=== PATIENT | male | born 1950 | race African-American/Black ===

== ENCOUNTER 2024-12-24 01:30 | Inpatient (IN) | payer OTHER ==
[2024-12-24] VITALS (14 sets, daily range): BP systolic 127–151; BP diastolic 79–97; PULSE 70–93; RESP 17–20; TEMP 97.4–97.9; O2SAT 94–99
[~2024-12-24] VITALS: Ht 170.2 cm; Wt 70.0 kg
[2024-12-24 02:10] LABS: Hematocrit 46.6 % (41.0-53.0); Hemoglobin 16.0 g/dL (13.5-17.5); Mean Corpuscular Hemoglobin 31.6 pg (28.0-32.0); Mean Corpuscular Volume 92.1 fL (80.0-100.0); Nucleated Red Blood Cells % 0.2 %
[2024-12-24 02:18] LABS: Alkaline Phosphatase 108 U/L (46-116); Anion Gap 12 (5-15); BUN/Creatinine Ratio 11.1 (10.0-20.0); Blood Urea Nitrogen 14 mg/dL (9-23); Calcium 10.3 mg/dL (8.7-10.4); Carbon Dioxide 22 mmol/L (20-31); Chloride 102 mmol/L (98-107); Potassium 3.7 mmol/L (3.5-5.1); Sodium 136 mmol/L (136-145)
[2024-12-24 02:19] LABS: Alanine Aminotransferase 42 U/L (7-40); Albumin 4.9 g/dL (3.2-4.8); Bilirubin, Total 1.7 mg/dL (0.2-1.0); Glucose 109 mg/dL (74-106); Total Protein 8.4 g/dL (5.7-8.2)
--- NOTE | 2024-12-24 02:28 | ED.PDOC ---
HPI Comments HPI:74-year-old male who came to ER for chest pains. Patient has a history of hypertension, dyslipidemia, chronic kidney failure. For the past 3 days, he has been complaining of right-sided chest pain. So complaining of lower back pain, radiating down his left buttocks, and down his posterior left leg. The patient states he usually takes Percocet 3 times a day for the pain. Patient denies cauda equina like symptoms. Patient follows with pain management for chronic back pain. Denies any recent fall or trauma. Initial Vitals BP:134/99 HR: 98 RR: 20 O2: 95% Temp: 97.5 F Past Medical History: Hypertension, dyslipidemia, chronic kidney failure, pinched nerve , chronic pain syndrome Past Surgical History: Hernia repair, rotator cuff surgery HPI: Poor Historian. REVIEW OF SYSTEMS: CONSTITUTIONAL: Denies acute: fever, diaphoresis, chills, generalized weakness. HEAD: Denies acute: headache, photophobia Eyes: Denies acute: Double vision, vision loss, eye pain, eye discharge. EARS: Denies acute: tinnitus, hearing loss, ear discharge, ear pain, THROAT: Denies acute: sore throat, swelling, difficulty swallowing , pain with swallowing, change in voice. NECK: Denies acute: neck pain, neck swelling, stiff neck. HEART: Denies acute : palpitations, LUNGS: Denies acute: SOB, wheezing, cough, hemoptysis ABDOMEN: Denies acute: abdominal pain, Nausea, Vomiting, diarrhea, melena , hematemesis, hematochezia SKIN: Denies acute: rash, redness, lesions, itchiness. EXTREMITIES: Denies acute: calf pain, numbness, tingling, weakness, Neuro: Denies acute: focal neurological deficit, motor or sensory focal neurological deficit, tremors, seizure like activity, confusion, dizziness, change in mental status, loss of bowel or bladder function, cauda equina like symptoms. : Denies acute: dysuria, hematuria, flank pain, increase in urinary frequency. PSYCH: Denies acute: hallucination, suicidal ideation, homicidal ideation. PHYSICAL EXAM: General: ---mild-----acute distress, awake and alert. Head: normocephalic, atraumatic. Neck: supple, trachea is midline, no swelling. Throat: Normal phonation. Eyes:, no erythema, no purulent discharge, no proptosis, no icterus. Heart: regular rate, regular rhythm, no significant murmur appreciated. Lungs: no apparent respiratory distress, Able to speak in full sentences. No wheezing, no rhonchi, no crackles. No stridors Clear to auscultation bilaterally. Abdomen: non tender to palpation, non distended, soft, no guarding, no rebound, + bowel sounds. Neuro: Awake, Alert, oriented to name, self, situation, follows commands GCS=15. Speech is normal. Skin: no petechia, no purpura, no cyanosis, non-pale, not jaundice. Lower extremities: --no - Pitting edema no deformity, no focal swelling, no calf TTP. Makes eye contact. moves all four extremities. Face: no apparent facial droop. ED COURSE: DISCLAIMER: This medical document was created using an electronic medical record system with voice recognition software and computerized dictation system. Although this document has been carefully reviewed, there might still be some phonetic and typographical errors. Occasional wrong-word or "sound-alike" substitutions may have occurred due to the inherent limitations of voice recognition software. These areas are purely typographical due to imperfections of the software programs and do not reflect any compromise in the patient's medical care. Please read the chart carefully and recognize, using context, where these substitutions have occurred. Chief Complaint: Chest Pain Time Seen by MD: 01:41 Primary Care Provider: DR VANEGAS Reviewed Notes: Allergies Allergies: Coded Allergies: NO KNOWN ALLERGIES (Unverified , 02/17/13) Information Source: Patient Mode of Arrival: Wheelchair Past Medical History PAST MEDICAL HISTORY: CKF, High Lipids, HTN Surgical History: Hernia Repair Surgical History (Other): Rotator cuff surgery Family History Family History: Reviewed,noncontributory to illness Social History Smoker: Non-Smoker Alcohol: Denies ETOH Use Drugs: Denies Drug Use Lives In: Home EKG EKG : Pulse Rate (adult): 87 [place]: LAD Cardiac Rhythm: NSR Was a procedure done? Was a procedure done?: No CP Differential Dx Differential Diagnosis: N/A Differential Diagnosis: Other (As far as low back pain: DDX included but not limited to Cauda Equina syndrome, lumbar radiculopathy, arthritis, disk herniation, sciatica, muscle strain, epidural abscess, transverse myelitis. Cord compression, spinal foraminal stenosis, spinal fractures, spondylosis, central canal stenosis, trauma, muscle sprain/strain, aneurysm/dissection, kidney stones, shingles, arthritis, Guillan Spencer, neoplasm., retroperitoneal hematoma) Differential Diagnosis: Angina, Chest Wall Pain, Costochondritis, Esophageal reflux/spasm, Gastritis, Myocardial Infarction, Other (Ddx include but not limitied to gastritis, musculoskeletal pain, radiculopathy, atypical chest pain, dissection, aneurysm, ACS, unstable angina, hiatal hernia, GERD, anxiety, costochondritis, PE, pneumothroax, neoplasm, cardiac ischemia, drug abuse, anemia.) X-Ray, Labs, Meds, VS Vital Signs Date Time Temp Pulse Resp B/P (MAP) Pulse Ox O2 Delivery O2 Flow Rate FiO2 12/24/24 03:38 77 18 127/79 (95) 95 12/24/24 03:15 75 18 72/46 (55) 12/24/24 02:42 89 18 95 Room Air* 0 21 12/24/24 02:42 97.8 89 18 130/83 (99) 95 97.8 12/24/24 02:41 130/83 12/24/24 02:28 87 12/24/24 01:38 87 12/24/24 01:31 97.5 98 20 134/99 95 97.5 Lab Test 12/24/24 02:25 12/24/24 01:40 Range/Units Troponin I High Sensitivity 3 L 3 L </=54 ng/L White Blood Count 7.3 4.4-10.8 10^3/uL Red Blood Count 5.06 4.5-5.90 10^6/uL Hemoglobin 16.0 13.5-17.5 g/dL Hematocrit 46.6 41.0-53.0 % Mean Corpuscular Volume 92.1 80.0-100.0 fL Mean Corpuscular Hemoglobin 31.6 28.0-32.0 pg Mean Corpuscular Hemoglobin Concent 34.3 32.0-36.0 g/dL Red Cell Distribution Width 14.6 H 11.8-14.3 % Platelet Count 335 140-450 10^3/uL Mean Platelet Volume 7.1 6.9-10.8 fL Neutrophils (%) (Auto) 53.6 37.0-80.0 % Lymphocytes (%) (Auto) 35.4 10.0-50.0 % Monocytes (%) (Auto) 9.0 0.0-12.0 % Eosinophils (%) (Auto) 1.8 0.0-7.0 % Basophils (%) (Auto) 0.2 0.0-2.0 % Neutrophils # (Auto) 3.9 1.6-8.6 10 ^3/uL Lymphocytes # (Auto) 2.6 0.4-5.4 10 ^3/uL Monocytes # (Auto) 0.6 0-1.3 10 ^3/uL Eosinophils # (Auto) 0.1 0-0.8 10 ^3/uL Basophils # (Auto) 0 0-0.2 10 ^3/uL Nucleated Red Blood Cells 0.2 % Sodium Level 136 136-145 mmol/L Potassium Level 3.7 3.5-5.1 mmol/L Chloride Level 102 98-107 mmol/L Carbon Dioxide Level 22 20-31 mmol/L Anion Gap 12 5-15 Blood Urea Nitrogen 14 9-23 mg/dL Creatinine 1.26 0.700-1.30 mg/dL Glomerular Filtration Rate Calc 60 >90 mL/min BUN/Creatinine Ratio 11.1 10.0-20.0 Serum Glucose 109 H 74-106 mg/dL Calcium Level 10.3 8.7-10.4 mg/dL Total Bilirubin 1.7 H 0.2-1.0 mg/dL Aspartate Amino Transferase (AST) 33 13-40 U/L Alanine Aminotransferase (ALT) 42 H 7-40 U/L Alkaline Phosphatase 108 46-116 U/L B-Type Natriuretic Peptide 10.13 0-100 pg/mL Total Protein 8.4 H 5.7-8.2 g/dL Albumin 4.9 H 3.2-4.8 g/dL Current Medications Medications (Trade) Dose Ordered Sig/Carolynn Route Start Time Stop Time Status Last Admin Aspirin 325 mg ONCE ONCE PO 12/24/24 02:15 12/24/24 02:16 DC 12/24/24 02:40 Nitroglycerin (Ntrostat Sublingual) 0.4 mg ONCE ONCE SL 12/24/24 02:15 12/24/24 02:16 DC 12/24/24 02:41 Dexamethasone Sodium Phosphate (Decadron Injection) 10 mg ONCE ONCE IV 12/24/24 02:45 12/24/24 02:51 DC 12/24/24 02:[address] [address] Ph: [phone] DIAGNOSTIC IMAGING Diagnostic Imaging Report : [id number] Signed PATIENT: AKBAR CARLSON ACCT: [id number] UNIT: [id number] : 1950 LOC: ER ROOM / BED: / AGE / SEX: 74 / M ADM STATUS: REG ER SERVICE 0 ORDERING PHYSICIAN: STACIE CAVANAUGH DO PROCEDURE(s): CXRP - CHEST PORTABLE REASON: cp ORDER NUMBER(s): [id number], ACCESSION NUMBER(s): [id number] CHEST RADIOGRAPH Indication: cp Technique: Single frontal view of the chest was obtained COMPARISON: None FINDINGS: Lines and Tubes: None Lungs: Clear Pleura: No effusion. No pneumothorax. Cardiomediastinal contours: Unremarkable Bones: Unremarkable IMPRESSION: 1. No acute disease. ATED BY: AB LEIGH MD DICTATED DATE/TIME: 12/24/24236 SIGNED BY: AB LEIGH MD SIGNED DATE/TIME: 12/24/24236 CC: Time of 1ST Reevaluation: 02:24 Reevaluation 1ST: Unchanged Patient Education/Counseling: Diagnosis, Treatment Family Education/Counseling: Diagnosis, Treatment Comments MDM: patient presented with the above HPI.--cardiac----workup was initiated. patient was found with the above mentioned diagnosis. the following medications were ordered: please refer to order lists of meds and tests obtained by myself Dr. Cavanaugh. Patient ED course and VS have been stabilized. Patient has been reassessed in the ED and remained in a stable condition. Pertinent incidental findings were discussed with the patient and/or family. Patient/family voices understanding and is agreeable with plan. Patient has been observed in the ED adequate length of time to insure improvement/stability. Escalation of care considered: Consideration of escalation to observation or admission Patient also has chronic pain syndrome on Percocet and follows with pain management. He has chronic rotator cuff pain and sciatica. Patient was given Decadron for his sciatica exacerbation. Patient had Percocet earlier at home. Patient was not given NSAIDs because he has CKD stage 3 Patient was ADMITTED to the medicine team for further evaluation and treatment of their presentation. All the reports of any imaging studies that were ordered by myself were reviewed by myself. SEPSIS Sepsis Screen Date sepsis recognized/suspect: Dec 24, 2024 Time Sepsis recognized/suspect: 013 Recent Procedure: No On Antibiotic Therapy: No Respiratory Rate >20: No Heart Rate >90: Yes Temp<36 C (96.8 F) or >38.3 C: No SBP <90 or MAP <65 mmHG: No New Acute Mental Status Change: No Is the patient on CPAP, BIPAP,: No Physician Orders Electrocardigram (12/24/24 01:53) Electrocardigram (12/24/24 02:53) Electrocardigram (12/24/24 04:53) [employer] (12/24/24 ) Chest Portable (12/24/24 02:01) Vital Signs Date Time Temp Pulse Resp B/P (MAP) Pulse Ox O2 Delivery O2 Flow Rate FiO2 12/24/24 03:38 77 18 127/79 (95) 95 12/24/24 03:15 75 18 72/46 (55) 12/24/24 02:42 89 18 95 Room Air* 0 21 12/24/24 02:42 97.8 89 18 130/83 (99) 95 97.8 12/24/24 02:41 130/83 12/24/24 02:28 87 12/24/24 01:38 87 12/24/24 01:31 97.5 98 20 134/99 95 97.5 Laboratory Tests Test 12/24/24 01:40 White Blood Count 7.3 10^3/uL (4.4-10.8) Medications Medications Dose Ordered Sig/Carolynn Route Start Time Stop Time Status Last Admin Dose Admin Aspirin 325 mg ONCE ONCE PO 12/24/24 02:15 12/24/24 02:16 DC 12/24/24 02:40 Dexamethasone Sodium Phosphate 10 mg ONCE ONCE IV 12/24/24 02:45 12/24/24 02:51 DC 10/26/25 02:45 Nitroglycerin 0.4 mg ONCE ONCE SL 12/24/24 02:15 12/24/24 02:16 DC 12/24/24 02:41 Departure 1 Departure Time of Disposition: 02:44 Impression: Primary Impression: Chest pain Additional Impressions: Chronic pain syndrome Sciatica Disposition: ADMITTED INPATIENT Admit to: Tele Condition: Guarded Discharged With: Self Critical Care Note Critical Care Time?: No Stability Stability form required: No Heart Score Heart Score: Heart Score Response (Comments) Value History Moderate Suspicious 1 EKG Normal 0 Age >65 2 Risk Factors >3 or Hx ASHD 2 Troponin Normal limit 0 Total 5 I personally scribed for STACIE CAVANAUGH DO ([email or web address]) on 12/24/24 at 02:28. Electronically submitted by Michael wAad ([facility]). I personally scribed for STACIE CAVANAUGH DO ([email or web address]) on 12/24/24 at 03:08. Electronically submitted by Michael Awad ([facility]). STACIE CAVANAUGH DO Dec 24, 2024 02:28
--- NOTE | 2024-12-24 02:39 | DVH ---
CHEST RADIOGRAPH Indication: cp Technique: Single frontal view of the chest was obtained COMPARISON: None FINDINGS: Lines and Tubes: None Lungs: Clear Pleura: No effusion. No pneumothorax. Cardiomediastinal contours: Unremarkable Bones: Unremarkable IMPRESSION: 1. No acute disease.
[2024-12-24] MEDS: NITROGLYCERIN 0.4 MG SL TAB SL ONE (02:41)
[2024-12-24] MEDS ORDERED: MORPHINE SULFATE INJ 2 MG/ml SYRG IV PRN (04:45)
[2024-12-24] MEDS ORDERED: ACETAMINOPHEN 325 MG TAB PO PRN (04:45)
[2024-12-24] MEDS ORDERED: NITROGLYCERIN 0.4 MG SL TAB SL PRN (04:45)
[2024-12-24] MEDS ORDERED: ALBUTEROL SULF 2.5 MG/0.5ML(0.5%) NEB SOLN NEB PRN (05:00)
[2024-12-24] MEDS ORDERED: IPRATROPIUM BROM 0.5 MG/2.5ML INH SOL NEB PRN (05:00)
[2024-12-24] MEDS: PANTOPRAZOLE 40 MG/10 ML VIAL INJ IV ONE (05:06)
--- NOTE | 2024-12-24 05:06 | DVHHPRES ---
History of Present Illness Resident Creating Document: GEORGI BARLOW RESIDENT History of Present Illness 74-year-old male patient with past medical history of hypertension, hyperlipidemia, CKD stage 2, sciatica, chronic pain syndrome, COPD presented with complaints of right-sided chest pain and lower back pain radiating to katarina ateral hips and bilateral legs right greater than left for last three days. Patient is on long-term pain management for sciatica likely due to disc compression but three days back he started having chest pain which is pressure- like on and off increased on deep inspiration, improved on lying flat, increased on walking, unrelieved by pain medication( Percocet ), not associated with any palpitation, dizziness, shortness of breath, cough. He mentioned that this is a new type of pain that he had for the 1st time. He also mentioned associated mild headache. Patient also complained of lower back pain radiating to bilateral hips and bila teral legs right greater than left for last three days. Patient mentioned that usually his pain is radiating to either hips but never both. The pain is unrelieved with medications, improved on lying flat and increased on walking and sitting. He also mentioned associated difficulty maintaining gait for last three days but denied any loss of bladder or bowel control and denied any motor deficit. He denied any recent trauma. Patient had a colonoscopy three months ago where he had polypectomy done. Patient has been getting intrathecal steroid injections for his pain and had MRI done which he mentioned revealed C7-C8 degenerative disc disease and nerve compression. Patient denied any episode of seizures,, nausea, vomiting, abdominal pain, cough, palpitations, shortness of breath. Past medical history Rotator cuff tendinitis COPD Hypertension Hyperlipidemia Chronic pain Sciatica Past surgical history Denied any recent surgery Family history Lung cancer, pancreatic cancer and splenic cancer in father at age of 80 Allergic history No known allergies Social history Patient smoked for 50 years half pack every day quit 3-4 months ago Patient actively drinks alcohol, last alcohol drink two months ago, drink 12 oz of vodka every other day Denied marijuana use drug intake Medication history Trelegy Albuterol Percocet Gabapentin Pepto-Bismol Tizanidine Amlodipine Atorvastatin Review of Systems Review of Systems As described in the HPI Allergies: Coded Allergies: NO KNOWN ALLERGIES (Unverified , 02/17/13) Medications Current Medications Medications Dose Ordered Sig/Carolynn Route Start Time Stop Time Status Last Admin Dose Admin Al Hydrox/Mg Hydrox/Simethicone 30 ml Q6HP PRN PO 12/24/24 04:45 Acetaminophen 650 mg Q6HP PRN PO 12/24/24 04:45 Morphine Sulfate 2 mg Q4HPRN PRN IV 12/24/24 04:45 Morphine Sulfate 2 mg Q30M PRN IV 12/24/24 04:45 Nitroglycerin 0.4 mg Q5MINP PRN SL 12/24/24 04:45 Albuterol 2.5 mg Q4HPRN PRN NEB 12/24/24 05:00 Ipratropium [place] 0.5 mg Q4HPRN PRN NEB 12/24/24 05:00 Pantoprazole Sodium 40 mg DAILY IV 12/24/24 10:00 Pregabalin 50 mg BID PO 12/24/24 22:00 Atorvastatin Calcium 40 mg HS PO 12/24/24 22:00 Exam Vital Signs Vital Signs Date Time Temp Pulse Resp B/P (MAP) Pulse Ox O2 Delivery O2 Flow Rate FiO2 12/24/24 04:44 70 12/24/24 03:38 18 127/79 (95) 95 12/24/24 02:42 Room Air* 0 21 12/24/24 02:42 97.8 97.8 Exam Examination General Appearance: Alert, Oriented X3, Cooperative, No acute distress HEENT: EOMI Respiratory: Clear to auscultation, Normal air movement Cardiovascular: Positive rib tenderness right-sided, Regular rate, Normal S1, Normal S2 Abdominal: Normal bowel sounds Extremities: No cyanosis, No edema, Normal pulses, No tenderness/swelling Skin: No rashes, No breakdown Neuro: Normal gait, Normal speech, Strength at 5/5 X4 ext, Normal tone, Sensation intact Psych/Mental Status: Mental status NL, Mood NL Straight leg raising test positive No motor deficit Labs/Xrays Labs Test 12/24/24 02:25 12/24/24 01:40 Range/Units Troponin I High Sensitivity 3 L </=54 ng/L White Blood Count 7.3 4.4-10.8 10^3/uL Red Blood Count 5.06 4.5-5.90 10^6/uL Hemoglobin 16.0 13.5-17.5 g/dL Hematocrit 46.6 41.0-53.0 % Mean Corpuscular Volume 92.1 80.0-100.0 fL Mean Corpuscular Hemoglobin 31.6 28.0-32.0 pg Mean Corpuscular Hemoglobin Concent 34.3 32.0-36.0 g/dL Red Cell Distribution Width 14.6 H 11.8-14.3 % Platelet Count 335 140-450 10^3/uL Mean Platelet Volume 7.1 6.9-10.8 fL Neutrophils (%) (Auto) 53.6 37.0-80.0 % Lymphocytes (%) (Auto) 35.4 10.0-50.0 % Monocytes (%) (Auto) 9.0 0.0-12.0 % Eosinophils (%) (Auto) 1.8 0.0-7.0 % Basophils (%) (Auto) 0.2 0.0-2.0 % Neutrophils # (Auto) 3.9 1.6-8.6 10 ^3/uL Lymphocytes # (Auto) 2.6 0.4-5.4 10 ^3/uL Monocytes # (Auto) 0.6 0-1.3 10 ^3/uL Eosinophils # (Auto) 0.1 0-0.8 10 ^3/uL Basophils # (Auto) 0 0-0.2 10 ^3/uL Nucleated Red Blood Cells 0.2 % Sodium Level 136 136-145 mmol/L Potassium Level 3.7 3.5-5.1 mmol/L Chloride Level 102 98-107 mmol/L Carbon Dioxide Level 22 20-31 mmol/L Anion Gap 12 5-15 Blood Urea Nitrogen 14 9-23 mg/dL Creatinine 1.26 0.700-1.30 mg/dL Glomerular Filtration Rate Calc 60 >90 mL/min BUN/Creatinine Ratio 11.1 10.0-20.0 Serum Glucose 109 H 74-106 mg/dL Calcium Level 10.3 8.7-10.4 mg/dL Total Bilirubin 1.7 H 0.2-1.0 mg/dL Aspartate Amino Transferase (AST) 33 13-40 U/L Alanine Aminotransferase (ALT) 42 H 7-40 U/L Alkaline Phosphatase 108 46-116 U/L B-Type Natriuretic Peptide 10.13 0-100 pg/mL Total Protein 8.4 H 5.7-8.2 g/dL Albumin 4.9 H 3.2-4.8 g/dL SEPSIS Sepsis Screen Date sepsis recognized/suspect: Dec 24, 2024 Time Sepsis recognized/suspect: 0131 Recent Procedure: No On Antibiotic Therapy: No Respiratory Rate >20: No Heart Rate >90: Yes Temp<36 C (96.8 F) or >38.3 C: No SBP <90 or MAP <65 mmHG: No New Acute Mental Status Change: No Is the patient on CPAP, BIPAP,: No Physician Orders Electrocardigram (12/24/24 01:53) Electrocardigram (12/24/24 02:53) Electrocardigram (12/24/24 04:53) Property Analyst (12/24/24 ) Chest Portable (12/24/24 02:01) Admit (12/24/24 04:41) Code Status (12/24/24 04:41) Vital Signs .PER UNIT PROTOCOL (12/24/24 04:41) Review Orders With Adm. (12/24/24 04:41) Alum & Mag Hydrox-Simethicone (Maalox Pl (12/24/24 04:45) Acetaminophen Tablet (Tylenol Tablet) (12/24/24 04:45) Notify Md Of Changes From Base (12/24/24 04:41) Advance Directive (12/24/24 04:41) Echo 2d Mode Cardiac Dop (12/24/24 04:41) Allergies (12/24/24 04:41) Morphine Sulfate Injection (12/24/24 04:45) Sequential Compression Device (12/24/24 ) Morphine Sulfate Injection (12/24/24 04:45) Oxygen By Nasal Cannula (12/24/24 04:41) Stat Ekg For Chest Pain (12/24/24 04:41) Notify Md Of Changes From Base (12/24/24 04:41) Ecdis N Navigation Operator For 24 Hours (12/24/24 04:41) Emergency Dysrhythmia Protocol (12/24/24 04:41) Rhythm Strips Once Every Shift (12/24/24 04:41) Nitroglycerin Sublingual (Ntrostat Subli (12/24/24 04:45) Electrocardigram (12/24/24 04:49) Thyroid Stimulating Hormone (12/24/24 04:49) Urinalysis (12/24/24 04:49) Albuterol Medneb (Ventolin Medneb) (12/24/24 05:00) Ipratropium Medneb (Atrovent Medneb) (12/24/24 05:00) Pantoprazole (Protonix) (12/24/24 10:00) Pregabalin Capsule (Lyrica Capsule) (12/24/24 22:00) Atorvastatin (Lipitor) (12/24/24 22:00) D-Dimer (12/24/24 05:04) Vitamin B12 (12/24/24 05:04) Folate (Folic Acid) (12/24/24 05:04) Hemoglobin A1c (12/25/24 04:00) Drug Screen (12/24/24 05:04) Vital Signs Date Time Temp Pulse Resp B/P (MAP) Pulse Ox O2 Delivery O2 Flow Rate FiO2 12/24/24 04:44 70 12/24/24 03:38 77 18 127/79 (95) 95 12/24/24 03:15 75 18 72/46 (55) 12/24/24 02:42 89 18 95 Room Air* 0 21 12/24/24 02:42 97.8 89 18 130/83 (99) 95 97.8 12/24/24 02:41 130/83 12/24/24 02:28 87 12/24/24 01:38 87 12/24/24 01:31 97.5 98 20 134/99 95 97.5 Laboratory Tests Test 12/24/24 01:40 White Blood Count 7.3 10^3/uL (4.4-10.8) Medications Medications Dose Ordered Sig/Carolynn Route Start Time Stop Time Status Last Admin Dose Admin Aspirin 325 mg ONCE ONCE PO 12/24/24 02:15 12/24/24 02:16 DC 12/24/24 02:40 325 MG Dexamethasone Sodium Phosphate 10 mg ONCE ONCE IV 12/24/24 02:45 12/24/24 02:51 DC 12/24/24 02:45 10 MG Nitroglycerin 0.4 mg ONCE ONCE SL 12/24/24 02:15 12/24/24 02:16 DC 12/24/24 02:41 0.4 MG Assessment/Plan Assessment/Plan Assessment/plan # Chest pain, rule out ACS, ? Unstable angina, ? Gastritis, ? Musculoskeletal -Unrelieved with nitroglycerin 2 times -Local tenderness right sided chest suggesting musculoskeletal cause -p.r.n. morphine -EKG : No significant ST changes Tropes within normal limit BNP Chest x-ray Echocardiogram , awaiting results Aspirin 325 mg given in the ER, aspirin 81 mg daily Atorvastatin 40 mg once and daily IV Protonix and Maalox Acetaminophen PRN # acute on chronic Lumbosacral radiculopathy -patient has mild ataxia as per history and bilateral hip pain for last three days unrelieved with the medication, concerning for possible spinal cord compression, but normal motor function and no bowel or bladder dysfunction, no definitive signs/symptoms of cauda equina syndrome as of now but could be early stage -we will do MRI lumbosacral spine for possible concern for spinal cord compression and history of colonic polyp, ?rule out any neoplastic cause -Dexamethasone 10 mg was given by the ER physician, we will continue d examethasone 4 mg IV q.6 hour -Pregabalin 50 mg b.i.d. # hypertension , currently normal blood pressure as per Age We will resume amlodipine # hyperlipidemia Resume statins # CKD stage 2 - monitor kidney function -lower nephrotoxic drugs # COPD, stable, uses Trelegy at home -albuterol and ipratropium p.r.n. # GERD Patient uses PPIs and Pepto-Bismol at home IV Protonix daily Maalox p.r.n. # history of colonic polyps Colonoscopy done three months ago status post polypectomy # ex-smoker -quit three years ago -smoked for 50 years half pack every day, average 25 pack year smoking history # alcohol use disorder Last drink two months ago Consume 12 ounces of vodka every other day #DVT prophylaxis -Low dose Lovenox 40mg SC daily Patient lives with , who was bedside, explained about the patient's cond ition Unrelieved with nitroglycerin 2 times Goals of care discussed with the patient for greater than 21 minutes, full code Plan discussed with: Patient, Other My Orders Orders - GEORGI BARLOW Procedure Category Date Status Time Admit ADMIT 12/24/24 Transmitted 04:41 Code Status CODE 12/24/24 Transmitted 04:41 Vital Signs [place] 12/24/24 Transmitted 04:41 Review Orders With [place] 12/24/24 Transmitted . 04:41 Alum & Mag PHA 12/24/24 In Process Hydrox-Simethicone 04:45 Acetaminophen Tablet PHA 12/24/24 In Process (Tylenol Tablet) 04:45 Notify Md Of Changes [facility] 12/24/24 In Process From Base 04:41 Advance Directive [place] 12/24/24 In Process 04:41 Echo 2d Mode Cardiac US 12/24/24 Logged DOP 04:41 Allergies [place] 12/24/24 In Process 04:41 Morphine Sulfate PHA 12/24/24 In Process Injection 04:45 Sequential [place] 12/24/24 In Process Compression Device Morphine Sulfate PHA 12/24/24 In Process Injection 04:45 Oxygen By Nasal RT 12/24/24 Transmitted Cannula 04:41 Stat Ekg For Chest [facility] 12/24/24 In Process Pain 04:41 Notify Md Of Changes [facility] 12/24/24 In Process From Base 04:41 Ecdis N Navigation Operator For [facility] 12/24/24 In Process 24 Hours 04:41 Emergency Dysrhythmia [facility] 12/24/24 In Process Protocol 04:41 Rhythm Strips Once [facility] 12/24/24 In Process Every Shift 04:41 Nitroglycerin PHA 12/24/24 In Process Sublingual (Ntrostat 04:45 Electrocardigram EKG 12/24/24 Logged 04:49 Thyroid Stimulating LAB 12/24/24 In Process Hormone 04:49 Urinalysis LAB 12/24/24 Logged 04:49 Albuterol Medneb PHA 12/24/24 In Process (Ventolin Medneb) 05:00 Ipratropium Medneb PHA 12/24/24 In Process (Atrovent Medneb) 05:00 Pantoprazole PHA 12/24/24 In Process (Protonix) 10:00 Pregabalin Capsule PHA 12/24/24 In Process (Lyrica Capsule) 22:00 Atorvastatin (Lipitor) PHA 12/24/24 In Process 22:00 D-Dimer LAB 12/24/24 Logged 05:04 Vitamin B12 LAB 12/24/24 Verified 05:04 Folate (Folic Acid) LAB 12/24/24 Verified 05:04 Hemoglobin A1c LAB 12/25/24 Verified 04:00 Drug Screen LAB 12/24/24 Verified 05:04 Date of Service: Dec 24, 2024 Billing Provider: NEIL JOSE MD Common Visit Codes: [id number] INP/OBS CARE (HIGH) Secondary Visit Codes: [id number] CARE PLAN 30 MINUTES GEORGI BARLOW RESIDENT Dec 24, 2024 05:06
[2024-12-24] MEDS: PREGABALIN 25 MG CAP PO ONE (05:15)
[2024-12-24] MEDS: ATORVASTATIN 20 MG TAB PO ONE (05:16)
[2024-12-24] MEDS ORDERED: OXYCODONE W/ ACETAMINOPHEN 5/325MG TABLET PO PRN (05:45)
[2024-12-24] MEDS: MORPHINE SULFATE INJ 2 MG/ml SYRG IV PRN (06:36)
--- NOTE | 2024-12-24 07:01 | ECG ---
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
--- NOTE | 2024-12-24 07:01 | ECG ---
[facility] Test Date: 2024-12-24 Test Time: 02:29:18 Pat Name: AKBAR CARLSON Department: Room: 0298T Gender: M Barrel Tester: : 1950 Requested By: STACIE CAVANAUGH Order Number: [id number] Reading MD: Quique Castro Measurements Intervals [place] Rate: 85 P: 62 [place]: 199 QRS: 26 QRSD: 91 T: 41 QT: 377 QTc: 449 Interpretive Statements Sinus rhythm Electronically Signed On 12-25-2024 15:14:40 PDT by Quique Castro Please click the below link to view image of tracing.
--- NOTE | 2024-12-24 07:01 | ECG ---
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
[2024-12-24] MEDS: PANTOPRAZOLE 40 MG/10 ML VIAL INJ IV SCH (10:28)
[2024-12-24] MEDS: ENOXAPARIN SOD 40 MG/0.4 ML SYRINGE SC SCH (10:30)
--- NOTE | 2024-12-24 11:30 | DVHPNRES ---
Progress Note Date Seen: Dec 24, 2024 Resident Creating Document: DELFINA WELDON RESIDENT Has the PT tested + for MRSA If YES, has PT been informed?: No Medical Necessity Reason Pt with a Central, PICC or Fol: No Subjective Review of Systems Olu Neves is a 74-year-old male, with past medical history of hypertension, hyperlipidemia, CKD stage 2, sciatica, chronic pain syndrome and COPD. The patient came to the ED with chief complain of 3 days of right-sided chest pain 10/10, pressure-like pain, intermittent, that started at rest, that irradiated to bilateral arms, that increases with deep and walking and improved at rest laying flat. On further questioning the patient reports he is being followed up by pain management due to chronic back pain, he is taking Percocet. During this visit the patient also complained of lower back pain radiating to bilateral hips and bilateral legs right greater than left for last three days. Patient mentioned that usually his pain is radiating to either hips but never both. The pain is unrelieved with medications (Percocet), improved on lying flat and increased on walking and sitting. Patient has been getting intrathecal steroid injections for his pain and had MRI done which he mentioned revealed C7- C8 degenerative disc disease and nerve compression. He also mentioned associated difficulty maintaining gait for last three days but denied any loss of bladder or bowel control and denied any motor deficit. Patient had a colonoscopy three months ago where he had polypectomy done. The day that the patient visit the ED, he took Percocet without improvement of his symptoms, this prompted his visit to the ED. He was admitted for further work up and management. The patient denies abdominal pain, nausea, diarrhea, fever, trauma, sick contacts, fever, chills or other symptoms.The patient was admitted for further assessment and management. Past medical history : Rotator cuff tendinitis, COPD, Hypertension, Hyperlipidemia, Chronic pain.Sciatica Past surgical history :; Denied any recent surgery Family history: Lung cancer, pancreatic cancer and splenic cancer in father at age of 80 Allergic history: No known allergies Social history: Patient smoked for 50 years half pack every day quit 3-4 months ago Patient actively drinks alcohol, last alcohol drink two months ago, drink 12 oz of vodka every other day Denied marijuana use drug intake Medication history: Trelegy, Albuterol, Percocet, Gabapentin, Pepto-Bismol, Tizanidine, Amlodipine. Atorvastatin Admission course: On 12/24/24, the patient was re-evaluated and examined at bedside, VS, labs and chart were reviewed. The patient report that the pain has improved with pain medication to /. No new complaints today. VS are stable. Labs unremarkable except by D-dimer. Due to elevated D-Dimer US Doppler bilateral legs was ordered. Also an MRI order has been placed to evaluate cause of lumbar pain. We will continue monitoring this patient's progress. ROS: Constitutional: denies: chills, diaphoresis, fatigue, fever, malaise, sweats, weakness, others EENTM: denies: blurred vision, double vision, ear bleeding, ear discharge, ear drainage, ear pain, ear ringing, eye pain, eye redness, hearing loss, mouth pain, mouth swelling, nasal discharge, nose bleeding, nose congestion, nose pain, photophobia, tearing, throat pain, throat swelling, voice changes, others Respiratory: denies: cough, hemoptysis, orthopnea, SOB at rest, shortness of breath, SOB with excertion, stridor, wheezing, others Cardiovascular: Right side chest pain. denies: chest pain, dizzy spells, diaphoresis, Dyspnea on exertion, edema, irregular heart beat, left arm pain, lightheadedness, palpitations, PND, syncope, others Gastrointestinal: denies: abdomen distended, abdominal pain, blood streaked bowels, constipated, diarrhea, dysphagia, difficulty swallowing, hematemesis, melena, nausea, poor appetite, poor fluid intake, rectal bleeding, rectal pain, vomiting, others Genitourinary: denies: abnormal vagina bleeding, burning, dyspareunia, dysuria, flank pain, frequency, hematuria, incontinence, pain, , vagina discharge, urgency, others Neurological: Bilateral lower leg numbness and tingling sensation down to the feet with difficult walking due to pain. denies: dizziness, fainting, headache, left sided numbness, left sided weakness, numbness. Musculoskeletal: Bilateral shoulder pain due to rotator cuff injuries per patient. Bilateral hip and leg pain down to the feet. difficult to walk and bare weight. Integumetry: reports: others (As stated in HPI) Allergic/Immunocompromised: denies: Difficulty Healing, Frequent Infections, Hives, Itching, others Hematologic/Lymphatic: denies: anemia, blood clots, easy bleeding, easy bruising, swollen glands, others Endocrine: denies: excessive hunger, excessive sweating, excessive thirst, excessive urination, flushing, intolerance to cold, intolerance to heat, unexplained weight gain, unexplained weight loss, others Psychiatric: denies: anxiety, bipolar disorder, depression, hopeless, panic disorder, schizophrenia, sleepless, suicidal, others Objective vital signs Vital Sign Date Time Temp Pulse Resp B/P (MAP) Pulse Ox O2 Delivery O2 Flow Rate FiO2 12/24/24 10:28 137/93 12/24/24 09:28 97.8 89 18 95 97.8 12/24/24 07:32 Room Air* 0 21 medications Current Medications Medications Dose Ordered Sig/Carolynn Route Start Time Stop Time Status Last Admin Dose Admin Al Hydrox/Mg Hydrox/Simethicone 30 ml Q6HP PRN PO 12/24/24 04:45 Acetaminophen 650 mg Q6HP PRN PO 12/24/24 04:45 Morphine Sulfate 2 mg Q4HPRN PRN IV 12/24/24 04:45 12/24/24 06:36 2 MG Morphine Sulfate 2 mg Q30M PRN IV 12/24/24 04:45 Nitroglycerin 0.4 mg Q5MINP PRN SL 12/24/24 04:45 Albuterol 2.5 mg Q4HPRN PRN NEB 12/24/24 05:00 Ipratropium [place] 0.5 mg Q4HPRN PRN NEB 12/24/24 05:00 Pantoprazole Sodium 40 mg DAILY IV 12/24/24 10:00 12/24/24 10:28 40 MG Pregabalin 50 mg BID PO 12/24/24 22:00 Atorvastatin Calcium 40 mg HS PO 12/24/24 22:00 Dexamethasone Sodium Phosphate 4 mg Q6HR IV 12/24/24 06:00 12/24/24 06:23 4 MG Oxycodone/ Acetaminophen 2 tab Q4HP PRN PO 12/24/24 05:45 Enoxaparin Sodium 40 mg DAILY SC 12/24/24 10:00 12/24/24 10:30 40 MG Amlodipine Besylate 5 mg DAILY PO 12/24/24 10:00 12/24/24 10:28 5 MG Examination General Appearance: Alert, Oriented X3, Cooperative, No acute distress HEENT: EOMI, no neck pain. ROM preserved on neck Respiratory: Clear to auscultation, Normal air movement Cardiovascular: tenderness on palpation on right chest, Positive rib tenderness right-sided, Heart: Regular rate, Normal S1, Normal S2 Abdominal: Normal bowel sounds Extremities: No cyanosis, No edema, Normal pulses, No tenderness/swelling. S traight leg raising test positive, worse in right. ROM limited by pain. Tenderness on palpation of vertebral processes on lumbar spine. No motor deficit. Gait not evaluated due to pain on standing. Skin: No rashes, No breakdown Neuro: Normal speech, Strength at 5/5 X4 ext, Normal tone, Sensation intact Psych/Mental Status: Mental status NL, Mood NL laboratory and microbiology Laboratory Tests 12/24/24 01:40 Test 12/24/24 01:40 Range/Units Serum Glucose 109 H 74-106 mg/dL Problem List/Assessment/Plan Problem List/Assessment/Plan # Chest pain, rule out ACS, #Possible Unstable angina #Rule out Musculoskeletal origin. -Unrelieved with nitroglycerin 2 times -Local tenderness right sided chest suggesting musculoskeletal cause -p.r.n. morphine -EKG : No significant ST changes Troponin: 3 and 3 BNP: 10.13 Chest x-ray: No acute disease. Echocardiogram: pending report. Aspirin 325 mg given in the ER, aspirin 81 mg daily Atorvastatin 40 mg once and daily Acetaminophen PRN #Acute on chronic Lumbosacral radiculopathy -patient has mild ataxia as per history and bilateral hip pain for last three days unrelieved with the medication, concerning for possible spinal cord compression, but normal motor function and no bowel or bladder dysfunction, no definitive signs/symptoms of cauda equina syndrome as of now but could be early stage -we will do MRI lumbosacral spine for possible concern for spinal cord compression and history of colonic polyp, ?rule out any neoplastic cause -Dexamethasone 10 mg was given by the ER physician, we will continue dexamethasone 4 mg IV q.6 hour -Pregabalin 50 mg b.i.d. - MRI Lumbar spine: pending report. #Hypertensive hear disease with diastolic/Systolic disfunction , currently normal blood pressure as per Age We will resume amlodipine # hyperlipidemia Resume statins # CKD stage 2 - monitor kidney function -lower nephrotoxic drugs # COPD, stable, uses Trelegy at home -albuterol and ipratropium p.r.n. # GERD Patient uses PPIs and Pepto-Bismol at home IV Protonix daily Maalox p.r.n. #History of colonic polyps Colonoscopy done three months ago status post polypectomy # Ex-smoker -quit three years ago -smoked for 50 years half pack every day, average 25 pack year smoking history #Alcohol use disorder Last drink two months ago Consume 12 ounces of vodka every other day DVT prophylaxis: Lovenox 40sc daily Diet: Cardiac diet Goals of care discussed with the patient for more than 35 minutes: Code Status: Full code PCP: Dr. Lacy. Cardiology Case discussed with Dr. Roman Plan discussed with: Patient My Orders My Orders Orders - DELFINA WELDON RESIDENT Procedure Category Date Status Time Bilat Lower Dvt US 12/24/24 Logged 09:57 Basic Metabolic Panel LAB 12/25/24 Verified 04:00 Complete Blood Count LAB 12/25/24 Verified 04:00 Date of Service: Dec 24, 2024 Billing Provider: RODGER SALCIDO MD Common Visit Codes: 35311-[id number] INP/OBS CARE(HIGH) Date of Service: Dec 24, 2024 Billing Provider: RODGER SALCIDO MD Common Visit Codes: [id number] INP/OBS CARE(HIGH) DELFINA WELDON RESIDENT Dec 24, 2024 11:30 RODGER SALCIDO MD Dec 24, 2024 23:27
--- NOTE | 2024-12-24 11:45 | DVH ---
Bilateral lower extremity venous duplex Clinical History: R/O DVT Comparison: None Technique: Duplex Doppler evaluation of the deep venous systems of both lower extremities from the common femora l veins to the popliteal veins including color Doppler and spectral/pulsed waveform analysis was perf ormed. Findings: RIGHT SIDE: The common femoral vein demonstrates appropriate compressibility and waveform variability. There is compressibility/patency of the great saphenous vein at the proximal thigh. The femoral vein demonstrates appropriate compressibility and waveform variability. The deep femoral vein demonstrates appropriate compressibility and waveform variability. The popliteal vein demonstrates appropriate compressibility and waveform variability. There is normal compressibility at the tibioperoneal trunk. LEFT SIDE: The common femoral vein demonstrates appropriate compressibility and waveform variability. There is compressibility/patency of the great saphenous vein at the proximal thigh. The femoral vein demonstrates appropriate compressibility and waveform variability. The deep femoral vein demonstrates appropriate compressibility and waveform variability. The popliteal vein demonstrates appropriate compressibility and waveform variability. There is normal compressibility at the tibioperoneal trunk. Impression: 1. No right or left femoropopliteal venous thrombosis.
--- NOTE | 2024-12-24 13:33 | DVHSR ---
APPROVED REPORT EXAM: Two-dimensional and M-mode echocardiogram with Doppler and color Doppler. Blood Pressure: 129/78 mmHg INDICATION Unable angina RISK FACTORS Height: 67, Weight: 155 DIMENSIONS LVDd3.9 (3.8-5.7cm)LA (2D)3.9 (1.9-4.0cm)Aortic Root4.1 (2.0-3.7cm) LVDs2.4 (2.5-4.0cm)LA (MM) (1.9-4.0cm)Aortic Cusp Exc1.9 (1.5-2.0cm) EF (%) 70.0 (55-70%)Rt. Atrium3.3 (1.9-4.0cm)Asc. Aorta cm Mitral Valve MitralMitral Stenosis E wave0.50m/sMV Mean GR.mmHg A wave0.83m/sMV Peak GR.mmHg E/A ratio0.62D MVAcm2 DECEL [id number] 1/2 Timems Aortic Valve Aortic ValveAortic Stenosis V10.88m/Veda Mean GR.4mmHg V21.34m/Veda Peak GR.7mmHg LVOT Diameter2.3 (1.8-2.4cm)Doppler AVA2.73cm2 AI P 1/2 [id number] Pulmonic Valve V20.88m/s Tricuspid Valve TR Velocity2.27m/s [id number] Conclusion lvef 60% mild lvh normal rv function normal atria no severe valve abnormaliteis noted pericardial fat pad vs small effusion, no HD compromise
--- NOTE | 2024-12-24 14:55 | DVH ---
EXAM: MRI LUMBAR SPINE WO CONTRAST INDICATION: rule out spinal cord compression TECHNIQUE: Multiplanar, multisequence MR images of the lumbar spine were obtained without the adminis tration of IV contrast. COMPARISON: None FINDINGS: [ANATOMY]: Five lumbar-type vertebral bodies are present. The most inferior well-formed disc space wi ll be referred to as L5-S1 for purposes of numbering in this report. [VERTEBRAL BODIES]: The vertebral bodies are normal in height, alignment, and marrow signal. modic ty pe 1 anterior superior endplate degenerative change with bone marrow edema of the anterior superior e ndplates of the L4 and L5. [SPINAL CANAL]: The conus medullaris is normal in signal and morphology, terminating at the L1-L2 lev el. Mild relative spinal canal narrowing posterior to L3, L4, L5. [FACETS]: Mild multilevel facet arthropathy with the associated edema extending posteriorly from the right L4-5 facet with slight pedicle edema on the right at L4. [OTHER]: None. LEVEL BY LEVEL DISCUSSION: [T12-L1]: Unremarkable. [L1-L2]: Mild bilateral foraminal narrowing secondary to facet arthropathy and trace inconspicuous di sc protrusions measuring 2 mm [L2-L3]: Trace bilateral inferior foraminal 2 mm disc protrusion bilateral facet arthropathy. Moderat e to severe bilateral foraminal narrowing [L3-L4]: Trace disc bulge with 2 mm posterior and inferior foraminal extension. Mild bilateral facet arthropathy. Moderate to severe bilateral foraminal narrowing [L4-L5]: Broad-based posterior disc protrusion measuring 3 mm with bilateral inferior foraminal exten [place]. Bilateral facet arthropathy. Severe bilateral foraminal narrowing. [L5-S1]: 3-4 mm posterior disc protrusion predominantly centrally with bilateral inferior foraminal e xtension severe bilateral foraminal narrowing. IMPRESSION: 1. Multilevel spondylosis and facet arthropathy with associated foraminal narrowing as detailed above . 2. No high-grade spinal canal stenosis.
[2024-12-24] MEDS: ATORVASTATIN 20 MG TAB PO SCH (21:41)
[2024-12-24] MEDS: PREGABALIN 25 MG CAP PO SCH (21:41)
[2024-12-25] VITALS (7 sets, daily range): BP systolic 131–154; BP diastolic 86–106; PULSE 82–97; RESP 17–18; TEMP 97.6–98.2; O2SAT 96–98
[2024-12-25] MEDS: MAALOX PLUS or MAALOX 30 ML PO PRN (05:26)
[2024-12-25 06:34] LABS: Hematocrit 45.4 % (41.0-53.0); Hemoglobin 15.4 g/dL (13.5-17.5); Mean Corpuscular Hemoglobin 31.4 pg (28.0-32.0); Mean Corpuscular Volume 92.5 fL (80.0-100.0); Nucleated Red Blood Cells % 0.1 %
[2024-12-25 06:55] LABS: Chloride 103 mmol/L (98-107); Potassium 4.3 mmol/L (3.5-5.1); Sodium 138 mmol/L (136-145)
[2024-12-25 06:56] LABS: Anion Gap 13 (5-15); Carbon Dioxide 22 mmol/L (20-31)
[2024-12-25 07:01] LABS: BUN/Creatinine Ratio 14.7 (10.0-20.0); Blood Urea Nitrogen 19 mg/dL (9-23)
[2024-12-25 07:25] LABS: Calcium 10.5 mg/dL (8.7-10.4); Glucose 143 mg/dL (74-106)
--- NOTE | 2024-12-25 13:10 | DVHDSRES ---
Discharge Summary Date of Admission Resident Creating Document: DELFINA WELDON RESIDENT Dec 24, 2024 at 04:41 Date of Discharge: Dec 25, 2024 Admitting Diagnosis Chest pain: Possible unstable angina, rule out ACS, GERD, musculoskeletical pain Acute on chronic Lumbrosacral radiculopathy. Hyperlipidemia COPD Labs/Diagnostic Data: Laboratory Results Test 12/25/24 05:41 12/24/24 02:25 12/24/24 01:40 White Blood Count 15.2 10^3/uL (4.4-10.8) Red Blood Count 4.91 10^6/uL (4.5-5.90) Hemoglobin 15.4 g/dL (13.5-17.5) Hematocrit 45.4 % (41.0-53.0) Mean Corpuscular Volume 92.5 fL (80.0-100.0) Mean Corpuscular Hemoglobin 31.4 pg (28.0-32.0) Mean Corpuscular Hemoglobin Concent 33.9 g/dL (32.0-36.0) Red Cell Distribution Width 14.4 % (11.8-14.3) Platelet Count 378 10^3/uL (140-450) Mean Platelet Volume 7.5 fL (6.9-10.8) Neutrophils (%) (Auto) 92.1 % (37.0-80.0) Lymphocytes (%) (Auto) 6.7 % (10.0-50.0) Monocytes (%) (Auto) 1.1 % (0.0-12.0) Eosinophils (%) (Auto) 0.0 % (0.0-7.0) Basophils (%) (Auto) 0.1 % (0.0-2.0) Neutrophils # (Auto) 14.0 10 ^3/uL (1.6-8.6) Lymphocytes # (Auto) 1.0 10 ^3/uL (0.4-5.4) Monocytes # (Auto) 0.2 10 ^3/uL (0-1.3) Eosinophils # (Auto) 0 10 ^3/uL (0-0.8) Basophils # (Auto) 0 10 ^3/uL (0-0.2) Nucleated Red Blood Cells 0.1 % Sodium Level 138 mmol/L (136-145) Potassium Level 4.3 mmol/L (3.5-5.1) Chloride Level 103 mmol/L (98-107) Carbon Dioxide Level 22 mmol/L (20-31) Anion Gap 13 (5-15) Blood Urea Nitrogen 19 mg/dL (9-23) Creatinine 1.29 mg/dL (0.700-1.30) Glomerular Filtration Rate Calc 59 mL/min (>90) BUN/Creatinine Ratio 14.7 (10.0-20.0) Serum Glucose 143 mg/dL (74-106) Hemoglobin A1c 4.6 % A1C (<5.7) Calcium Level 10.5 mg/dL (8.7-10.4) Troponin I High Sensitivity 3 ng/L (</=54) Thyroid Stimulating Hormone (TSH) 3.68 uIU/mL (0.55-4.78) D-Dimer, Quantitative 1.11 mg/L FEU (0.0-0.49) Total Bilirubin 1.7 mg/dL (0.2-1.0) Aspartate Amino Transferase (AST) 33 U/L (13-40) Alanine Aminotransferase (ALT) 42 U/L (7-40) Alkaline Phosphatase 108 U/L (46-116) B-Type Natriuretic Peptide 10.13 pg/mL (0-100) Total Protein 8.4 g/dL (5.7-8.2) Albumin 4.9 g/dL (3.2-4.8) Vitamin B12 Level 818 pg/mL (211-911) Folic Acid 10.83 ng/mL (>5.38) Other Laboratory Tests 12/25/24 05:41 Brief Hx & Hospital Course: Olu Neves is a 74-year-old male, with past medical history of hypertension, hyperlipidemia, CKD stage 2, sciatica, chronic pain syndrome and COPD. The patient came to the ED with chief complain of 3 days of right-sided chest pain 10/10, pressure-like pain, intermittent, that started at rest, that irradiated to bilateral arms, that increases with deep and walking and improved at rest laying flat. On further questioning the patient reports he is being followed up by pain management due to chronic back pain, he is taking Percocet. During this visit the patient also complained of lower back pain radiating to bilateral hips and bilateral legs right greater than left for last three days. Patient mentioned that usually his pain is radiating to either hips but never both. The pain is unrelieved with medications (Percocet), improved on lying flat and increased on walking and sitting. Patient has been getting intrathecal steroid injections for his pain and had MRI done which he mentioned revealed C7- C8 degenerative disc disease and nerve compression. He also mentioned associated difficulty maintaining gait for last three days but denied any loss of bladder or bowel control and denied any motor deficit. Patient had a colonoscopy three months ago where he had polypectomy done. The day that the patient visit the ED, he took Percocet without improvement of his symptoms, this prompted his visit to the ED. He was admitted for further work up and management. The patient denies abdominal pain, nausea, diarrhea, fever, trauma, sick contacts, fever, chills or other symptoms.The patient was admitted for further assessment and management. Past medical history : Rotator cuff tendinitis, COPD, Hypertension, Hyperlipidemia, Chronic pain.Sciatica Past surgical history :; Denied any recent surgery Family history: Lung cancer, pancreatic cancer and splenic cancer in father at age of 80 Allergic history: No known allergies Social history: Patient smoked for 50 years half pack every day quit 3-4 months ago Patient actively drinks alcohol, last alcohol drink two months ago, drink 12 oz of vodka every other day Denied marijuana use drug intake Medication history: Trelegy, Albuterol, Percocet, Gabapentin, Pepto-Bismol, Tizanidine, Amlodipine. Atorvastatin Admission course: On 12/24/24, the patient was re-evaluated and examined at bedside, VS, labs and chart were reviewed. The patient report that the pain has improved with pain medication to 2/10. No new complaints today. VS are stable. Labs unremarkable except by D-dimer. Due to elevated D-Dimer US Doppler bilateral legs was ordered. Also an MRI order has been placed to evaluate cause of lumbar pain. We will continue monitoring this patient's progress. On 12/25/24, the patient was re-evaluated and examined at bedside. His VS, labs and chart was reviewed. The patient reports feeling well today, back pain is 1/10. No chest pain. ECHO showed: EF60%, normal RV funtion. MRI reported: Multilevel spondylosis and facet arthropathy with associated foraminal narrowing and multilevel disc protusions. Bilateral lower extremities US doppler reported No right or left femoropopliteal venous thrombosis. Due to clinical improvement, the patient will be discharge. The patient will follow up with PCP, pain management and spine surgeon in 1 week. ROS: Constitutional: denies: chills, diaphoresis, fatigue, fever, malaise, sweats, weakness, others EENTM: denies: blurred vision, double vision, ear bleeding, ear discharge, ear drainage, ear pain, ear ringing, eye pain, eye redness, hearing loss, mouth pain, mouth swelling, nasal discharge, nose bleeding, nose congestion, nose pain, photophobia, tearing, throat pain, throat swelling, voice changes, others Respiratory: denies: cough, hemoptysis, orthopnea, SOB at rest, shortness of breath, SOB with excertion, stridor, wheezing, others Cardiovascular: Right side chest pain. denies: chest pain, dizzy spells, diaphoresis, Dyspnea on exertion, edema, irregular heart beat, left arm pain, lightheadedness, palpitations, PND, syncope, others Gastrointestinal: denies: abdomen distended, abdominal pain, blood streaked bowels, constipated, diarrhea, dysphagia, difficulty swallowing, hematemesis, melena, nausea, poor appetite, poor fluid intake, rectal bleeding, rectal pain, vomiting, others Genitourinary: denies: abnormal vagina bleeding, burning, dyspareunia, dysuria, flank pain, frequency, hematuria, incontinence, pain, , vagina discharge, urgency, others Neurological: Bilateral lower leg numbness and tingling sensation down to the feet with difficult walking due to pain. denies: dizziness, fainting, headache, left sided numbness, left sided weakness, numbness. Musculoskeletal: Bilateral shoulder pain due to rotator cuff injuries per patient. Bilateral hip and leg pain down to the feet. difficult to walk and bare weight. Integumetry: reports: others (As stated in HPI) Allergic/Immunocompromised: denies: Difficulty Healing, Frequent Infections, Hives, Itching, others Hematologic/Lymphatic: denies: anemia, blood clots, easy bleeding, easy bruising, swollen glands, others Endocrine: denies: excessive hunger, excessive sweating, excessive thirst, excessive urination, flushing, intolerance to cold, intolerance to heat, unexplained weight gain, unexplained weight loss, others Psychiatric: denies: anxiety, bipolar disorder, depression, hopeless, panic disorder, schizophrenia, sleepless, suicidal, others Physical Exam: General Appearance: Alert, Oriented X3, Cooperative, No acute distress HEENT: EOMI, no neck pain. ROM preserved on neck Respiratory: Clear to auscultation, Normal air movement Cardiovascular: No chest pain or muscular tenderness. Heart: Regular rate, Normal S1, Normal S2 Abdominal: Normal bowel sounds Extremities: No cyanosis, No edema, Normal pulses, No tenderness/swelling. S traight leg raising test positive, worse in right. ROM limited by pain. Tenderness on palpation of vertebral processes on lumbar spine. No motor deficit. Gait not evaluated due to pain on standing. Skin: No rashes, No breakdown Neuro: Normal speech, Strength at 5/5 X4 ext, Normal tone, Sensation intact Psych/Mental Status: Mental status NL, Mood NL Operations or Procedures PROCEDURE(s): ECID - ECHO 2D MODE CARDIAC DOP REASON: unstable angina ORDER NUMBER(s): [id number], ACCESSION NUMBER(s): [id number] APPROVED REPORT EXAM: Two-dimensional and M-mode echocardiogram with Doppler and color Doppler. Blood Pressure: 129/78 mmHg INDICATION Unable angina RISK FACTORS Height: 67, Weight: 155 DIMENSIONS LVDd 3.9 (3.8-5.7cm) LA (2D) 3.9 (1.9-4.0cm) Aortic Root 4.1 (2.0- 3.7cm) LVDs 2.4 (2.5-4.0cm) LA (MM) (1.9-4.0cm) Aortic Cusp Exc 1.9 (1.5- 2.0cm) EF (%) 70.0 (55-70%) Rt. Atrium 3.3 (1.9-4.0cm) Asc. Aorta cm Mitral Valve Mitral Mitral Stenosis E wave 0.50m/s MV Mean GR. mmHg A wave 0.83m/s MV Peak GR. mmHg E/A ratio 0.6 2D MVA cm2 DECEL Time 200ms PRESS 1/2 Time ms Aortic Valve Aortic Valve Aortic Stenosis V1 0.88m/s AO Mean GR. 4mmHg V2 1.34m/s AO Peak GR. 7mmHg LVOT Diameter 2.3 (1.8-2.4cm) Doppler AMANDA 2.73cm2 AI P 1/2 Time 529.01ms Pulmonic Valve V2 0.88m/s Tricuspid Valve TR Velocity 2.27m/s RVSP 24mmHg Conclusion lvef 60% mild lvh normal rv function normal atria no severe valve abnormaliteis noted pericardial fat pad vs small effusion, no HD compromise PROCEDURE(s): BLDVT - BiLat Lower DVT REASON: R/O DVT ORDER NUMBER(s): [id number], ACCESSION NUMBER(s): [id number] Bilateral lower extremity venous duplex Clinical History: R/O DVT Comparison: None Technique: Duplex Doppler evaluation of the deep venous systems of both lower extremities from the common femoral veins to the popliteal veins including color Doppler and spectral/pulsed waveform analysis was performed. Findings: RIGHT SIDE: The common femoral vein demonstrates appropriate compressibility and waveform variability. There is compressibility/patency of the great saphenous vein at the proximal thigh. The femoral vein demonstrates appropriate compressibility and waveform variability. The deep femoral vein demonstrates appropriate compressibility and waveform variability. The popliteal vein demonstrates appropriate compressibility and waveform variability. There is normal compressibility at the tibioperoneal trunk. LEFT SIDE: The common femoral vein demonstrates appropriate compressibility and waveform variability. There is compressibility/patency of the great saphenous vein at the proximal thigh. The femoral vein demonstrates appropriate compressibility and waveform variability. The deep femoral vein demonstrates appropriate compressibility and waveform variability. The popliteal vein demonstrates appropriate compressibility and waveform variability. There is normal compressibility at the tibioperoneal trunk. Impression: 1. No right or left femoropopliteal venous thrombosis. EDURE(s): MSL - LUMBAR SPINE WO CONTRAST REASON: rule out spinal cord compression ORDER NUMBER(s): [id number], ACCESSION NUMBER(s): [id number] EXAM: MRI LUMBAR SPINE WO CONTRAST INDICATION: rule out spinal cord compression TECHNIQUE: Multiplanar, multisequence MR images of the lumbar spine were obtained without the administration of IV contrast. COMPARISON: None FINDINGS: [ANATOMY]: Five lumbar-type vertebral bodies are present. The most inferior well-formed disc space will be referred to as L5-S1 for purposes of numbering in this report. [VERTEBRAL BODIES]: The vertebral bodies are normal in height, alignment, and marrow signal. modic type 1 anterior superior endplate degenerative change with bone marrow edema of the anterior superior endplates of the L4 and L5. [SPINAL CANAL]: The conus medullaris is normal in signal and morphology, terminating at the L1-L2 level. Mild relative spinal canal narrowing posterior to L3, L4, L5. [FACETS]: Mild multilevel facet arthropathy with the associated edema extending posteriorly from the right L4-5 facet with slight pedicle edema on the right at L4. [OTHER]: None. LEVEL BY LEVEL DISCUSSION: [T12-L1]: Unremarkable. [L1-L2]: Mild bilateral foraminal narrowing secondary to facet arthropathy and trace inconspicuous disc protrusions measuring 2 mm [L2-L3]: Trace bilateral inferior foraminal 2 mm disc protrusion bilateral facet arthropathy. Moderate to severe bilateral foraminal narrowing [L3-L4]: Trace disc bulge with 2 mm posterior and inferior foraminal extension. Mild bilateral facet arthropathy. Moderate to severe bilateral foraminal narrowing [L4-L5]: Broad-based posterior disc protrusion measuring 3 mm with bilateral inferior foraminal extension. Bilateral facet arthropathy. Severe bilateral foraminal narrowing. [L5-S1]: 3-4 mm posterior disc protrusion predominantly centrally with bilateral inferior foraminal extension severe bilateral foraminal narrowing. IMPRESSION: 1. Multilevel spondylosis and facet arthropathy with associated foraminal narrowing as detailed above. 2. No high-grade spinal canal stenosis. EDURE(s): CXRP - CHEST PORTABLE REASON: cp ORDER NUMBER(s): [id number], ACCESSION NUMBER(s): [id number] CHEST RADIOGRAPH Indication: cp Technique: Single frontal view of the chest was obtained COMPARISON: None FINDINGS: Lines and Tubes: None Lungs: Clear Pleura: No effusion. No pneumothorax. Cardiomediastinal contours: Unremarkable Bones: Unremarkable IMPRESSION: 1. No acute disease. Condition at Discharge: Stable Final Diagnosis/Problems List Lumbar Polyradiculopathy Discharge Disposition: Home Discharge Instruct/Medications Diet: Cardiac 2g Na,low cholest, Renal Activity: No Restrictions, As Tolerated Follow Up/Referral: F/U with PCP in one week F/U with pain management in 1 week F/U with spine surgeon in 1 week. No Active Prescriptions or Reported Meds Discharge Statement: "Patient was advised to return to the ER or call 911 if any headaches, dizziness, shortness of breath, chest pain, abdominal pain, bleeding, fevers, or worsening of medical condition. Patient was counseled about treatment plan, medications, possible side effects, patientverbalized understanding. All questions were answered to the best of my ability. This discharge took greater then 30 minutes in planning, reviewing documentation, counseling the patient, and discussing with other team members." ASSESSMENT ASSESSMENT Assessment Assessments/Plan Discharge home Continue cardiac/renal diet # Chest pain, ACS ruled out #Possible Unstable angina. #Possible Musculoskeletal origin. #Acute on chronic Lumbosacral radiculopathy #Hypertensive hear disease with diastolic/Systolic disfunction , currently normal blood pressure as per Age # hyperlipidemia # CKD stage 2 # COPD, stable, uses Trelegy at home # GERD #History of colonic polyps # Ex-smoker DVT prophylaxis: Lovenox 40sc daily Diet: Cardiac diet Goals of care discussed with the patient for more than 35 minutes Code Status: Full code PCP: Dr. Lacy. Case discussed with Dr. Roman Date of Service: Dec 25, 2024 Billing Provider: RODGER SALCIDO MD Common Visit Codes: 88884-CDG/OBS DISCH DAY >30min DELFINA WELDON RESIDENT Dec 25, 2024 13:10 RODGER SALCIDO MD Dec 25, 2024 21:40
== END 2024-12-25 14:05 | disposition home or self-care (01) | DRG 552 ==
LOC: ER 01:30 → OVERFLOW 04:41 → TELE-WESTW 09:20
PROVIDERS: ADMIT Internal Medicine; ATTEND Internal Medicine
DX: M54.17 Radiculopathy, lumbosacral region (principal); I20.0 Unstable angina; K21.9 Gastro-esophageal reflux disease without esophagitis; J44.9 Chronic obstructive pulmonary disease, unspecified; N18.2 Chronic kidney disease, stage 2 (mild); E78.5 Hyperlipidemia, unspecified; G89.4 Chronic pain syndrome; I12.9 Hypertensive chronic kidney disease with stage 1 through stage 4 chronic kidney disease, or unspecified chronic kidney disease; N18.9 Chronic kidney disease, unspecified; Z79.899 Other long term (current) drug therapy
CPT/HCPCS: 36415; 71045; 72148; 80048; 80053; 82607; 82746; 83036; 83880; 84443; 84484; 85025; 85379; 93005; 93306; 93970; 96374; G0378; J1100; J2470

== ENCOUNTER 2025-01-16 16:24 | Inpatient (IN) | payer OTHER ==
[~2025-01-16] VITALS: Ht 170.2 cm; Wt 73.2 kg
--- NOTE | 2025-01-16 16:49 | ED.PDOC ---
History of Present Illness HPI Comments 74 year old male with PMHx a-fib, CKF, DM, HLD, HTN, presents to the ED via EMS with a chief complaint of generalized weakness onset today. Per EMS, called 911 due to patient experiencing generalized weakness, was not able to get out of bed, was weak, fatigue, seemed confused. Upon EMS arrival, patient was A&O x2, upon ED arrival patient was A&O x4, very fatigued. Per EMS, also states patient took Xanax last night. Denies fever, chills, headache, dizziness, nausea, vomiting, head injury, chest pain. No other symptoms or modifying factors present at this time. Chief Complaint: General Weakness Time Seen by MD: 16:35 Primary Care Provider: DR VANEGAS Reviewed Notes: Medications, Allergies Allergies: Coded Allergies: NO KNOWN ALLERGIES (Unverified , 02/17/13) Home Meds No Active Prescriptions or Reported Meds Information Source: Emergency Med Personnel Mode of Arrival: EMS Severity: Moderate Timing: Hours Duration: Since onset Prehospital treatment: None Past Medical History PAST MEDICAL HISTORY: AFIB, CKF, DM, High Lipids, HTN Surgical History: Hernia Repair Family History Family History: Reviewed,noncontributory to illness Social History Smoker: Non-Smoker Alcohol: Denies ETOH Use Drugs: Denies Drug Use Lives In: Home Constitutional: reports: fatigue, weakness; denies: chills, diaphoresis, fever, malaise, sweats, others EENTM: denies: blurred vision, double vision, ear bleeding, ear discharge, ear drainage, ear pain, ear ringing, eye pain, eye redness, hearing loss, mouth pain, mouth swelling, nasal discharge, nose bleeding, nose congestion, nose pain, photophobia, tearing, throat pain, throat swelling, voice changes, others Respiratory: denies: cough, hemoptysis, orthopnea, SOB at rest, shortness of breath, SOB with excertion, stridor, wheezing, others Cardiovascular: denies: chest pain, dizzy spells, diaphoresis, Dyspnea on exertion, edema, irregular heart beat, left arm pain, lightheadedness, palpitations, PND, syncope, others Gastrointestinal: denies: abdomen distended, abdominal pain, blood streaked bowels, constipated, diarrhea, dysphagia, difficulty swallowing, hematemesis, melena, nausea, poor appetite, poor fluid intake, rectal bleeding, rectal pain, vomiting, others Genitourinary: denies: burning, dysuria, flank pain, frequency, hematuria, incontinence, penile discharge, penile sore, pain, testicle pain, testicle swelling, urgency, others Neurological: reports: weakness; denies: dizziness, fainting, headache, left sided numbness, left sided weakness, numbness, paresthesia, pre-existing deficit, right sided numbness, right sided weakness, seizure, speech problems, tingling, tremors, others Musculoskeletal: denies: back pain, gout, joint pain, joint swelling, muscle pain, muscle stiffness, neck pain, others Integumetry: denies: bruises, change in color, change in hair/nails, dryness, laceration, lesions, lumps, rash, wounds, others Allergic/Immunocompromised: denies: Difficulty Healing, Frequent Infections, Hives, Itching, others Hematologic/Lymphatic: denies: anemia, blood clots, easy bleeding, easy bruising, swollen glands, others Endocrine: denies: excessive hunger, excessive sweating, excessive thirst, excessive urination, flushing, intolerance to cold, intolerance to heat, unexplained weight gain, unexplained weight loss, others Psychiatric: reports: others (ALOC); denies: anxiety, bipolar disorder, depression, hopeless, panic disorder, schizophrenia, sleepless, suicidal All Other Systems: Reviewed and Negative Physical Exam General Appearance: Normal, Other (lethargic) HEENT: Normal ENT Inspection, Pharynx Normal, TMs Normal Neck: Full Range of Motion, Non-Tender, Normal, Normal Inspection Respiratory: Chest Non-Tender, Lungs Clear, No Accessory Muscle Use, No Respiratory Distress, Normal Breath Sounds Cardiovascular: No Edema, No JVD, No Murmur, No Gallop, Normal Peripheral Pulses, Regular Rate/Rhythm Breast Exam: Deferred Gastrointestinal: No Organomegaly, Non Tender, No Pulsatile Mass, Normal Bowel Sounds, Soft Genitalia: Deferred Pelvic: Deferred Rectal: Deferred Extremities: Other (unable to obtain) Musculoskeletal : Apperance: Normal Neurologic: Other (unable to obtain) Cerebellar Function: Normal Reflexes: Normal Skin: Dry, Normal Color, Warm Lymphatic: No Adenopathy Was a procedure done? Was a procedure done?: No Differential Dx Considerations may include: Sepsis, stroke, CVA, drug overdose X-Ray, Labs, Meds, VS Vital Signs Date Time Temp Pulse Resp B/P (MAP) Pulse Ox O2 Delivery O2 Flow Rate FiO2 01/16/25 18:00 82 16 95 Room Air* 0 21 01/16/25 18:00 98.1 82 16 129/73 (91) 95 98.1 01/16/25 16:43 86 01/16/25 16:37 98.0 88 24 142/98 95 98.0 Lab Test 01/16/25 18:36 01/16/25 18:22 01/16/25 17:01 Range/Units Troponin I High Sensitivity < 3 L < 3 L </=54 ng/L Urine Color Colorless Yellow Urine Clarity Clear Clear Urine pH 7.5 5.0-9.0 Urine Specific [place] 1.005 1.001-1.035 Urine Protein Negative Negative Urine Ketones Negative Negative Urine Blood Negative Negative /uL Urine Nitrite Negative Negative Urine Bilirubin Negative Negative Urine Urobilinogen Normal Negative mg/dL Urine Leukocyte Esterase Negative Negative /uL Urine RBC 1 0 - 3 /hpf Urine Microscopic WBC < 1 0-3 /HPF Urine Squamous Epithelial Cells None seen <5 /hpf Urine Bacteria None seen None Seen /hpf Urine Glucose Normal Normal mg/dL Urine Opiates Screen Pos NEGATIVE Urine Fentanyl Screen Neg NEGATIVE Urine Barbiturates Screen Neg NEGATIVE Urine Phencyclidine Screen Neg NEGATIVE Urine Amphetamines Screen Neg NEGATIVE Urine Benzodiazepines Screen Pos NEGATIVE Urine Cocaine Screen Neg NEGATIVE Urine Cannabinoids Screen Pos NEGATIVE White Blood Count 6.7 4.4-10.8 10^3/uL Red Blood Count 4.48 L 4.5-5.90 10^6/uL Hemoglobin 14.3 13.5-17.5 g/dL Hematocrit 42.2 41.0-53.0 % Mean Corpuscular Volume 94.2 80.0-100.0 fL Mean Corpuscular Hemoglobin 31.9 28.0-32.0 pg Mean Corpuscular Hemoglobin Concent 33.8 32.0-36.0 g/dL Red Cell Distribution Width 15.4 H 11.8-14.3 % Platelet Count 334 140-450 10^3/uL Mean Platelet Volume 7.2 6.9-10.8 fL Neutrophils (%) (Auto) 74.3 37.0-80.0 % Lymphocytes (%) (Auto) 17.8 10.0-50.0 % Monocytes (%) (Auto) 6.5 0.0-12.0 % Eosinophils (%) (Auto) 1.1 0.0-7.0 % Basophils (%) (Auto) 0.3 0.0-2.0 % Neutrophils # (Auto) 5.0 1.6-8.6 10 ^3/uL Lymphocytes # (Auto) 1.2 0.4-5.4 10 ^3/uL Monocytes # (Auto) 0.4 0-1.3 10 ^3/uL Eosinophils # (Auto) 0.1 0-0.8 10 ^3/uL Basophils # (Auto) 0 0-0.2 10 ^3/uL Nucleated Red Blood Cells 0.1 % Sodium Level 141 136-145 mmol/L Potassium Level 4.3 3.5-5.1 mmol/L Chloride Level 106 98-107 mmol/L Carbon Dioxide Level 25 20-31 mmol/L Anion Gap 10 5-15 Blood Urea Nitrogen 13 9-23 mg/dL Creatinine 1.08 0.700-1.30 mg/dL Glomerular Filtration Rate Calc 72 >90 mL/min BUN/Creatinine Ratio 12.0 10.0-20.0 Serum Glucose 104 74-106 mg/dL Lactic Acid Level 0.9 0.4-2.0 mmol/L Calcium Level 10.1 8.7-10.4 mg/dL Total Bilirubin 1.0 0.2-1.0 mg/dL Aspartate Amino Transferase (AST) 28 13-40 U/L Alanine Aminotransferase (ALT) 33 7-40 U/L Alkaline Phosphatase 101 46-116 U/L Ammonia < 10 L 11-32 umol/L Total Protein 7.5 5.7-8.2 g/dL Albumin 4.6 3.2-4.8 g/dL Current Medications Medications (Trade) Dose Ordered Sig/Carolynn Route Start Time Stop Time Status Last Admin Ketorolac Tromethamine (Toradol Injection) 30 mg ONCE ONCE IV 01/16/25 19:00 01/16/25 19:01 DC 01/16/25 19:03 X-Ray, Labs, Meds, VS Comment Patient be admitted for opioid overdose, benzodiazepine overdose, THC overdose Patient be observed for airway precautions Patient easily arousable Patient unable to walk and elderly unable to care for patient alone at home Patient hemodynamically stable Time of 1ST Reevaluation: 17:05 Reevaluation 1ST: Unchanged Patient Education/Counseling: Diagnosis, Treatment Family Education/Counseling: No Family Present SEPSIS Sepsis Screen Date sepsis recognized/suspect: Jan 16, 2025 Time Sepsis recognized/suspect: 1629 Recent Procedure: No On Antibiotic Therapy: No Respiratory Rate >20: Yes Heart Rate >90: No Temp<36 C (96.8 F) or >38.3 C: No SBP <90 or MAP <65 mmHG: No New Acute Mental Status Change: No Is the patient on CPAP, BIPAP,: No Physician Orders Head Without Contrast (01/16/25 16:56) Chest Xray 1 View (01/16/25 16:56) Troponin-I Hs (01/16/25 19:56) Electrocardigram (01/16/25 17:22) Vital Signs Date Time Temp Pulse Resp B/P (MAP) Pulse Ox O2 Delivery O2 Flow Rate FiO2 01/16/25 18:00 82 16 95 Room Air* 0 21 01/16/25 18:00 98.1 82 16 129/73 (91) 95 98.1 01/16/25 16:43 86 01/16/25 16:37 98.0 88 24 142/98 95 98.0 Laboratory Tests Test 01/16/25 17:01 Lactic Acid Level 0.9 mmol/L (0.4-2.0) White Blood Count 6.7 10^3/uL (4.4-10.8) Medications Medications Dose Ordered Sig/Carolynn Route Start Time Stop Time Status Last Admin Dose Admin Ketorolac Tromethamine 30 mg ONCE ONCE IV 01/16/25 19:00 01/16/25 19:01 DC 01/16/25 19:03 Departure 1 Departure Time of Disposition: 20:09 Impression: Primary Impression: Opiate overdose Qualified Codes: T40.601A - Poisoning by unspecified narcotics, accidental (unintentional), initial encounter Additional Impressions: Benzodiazepine overdose Qualified Codes: T42.4X1A - Poisoning by benzodiazepines, accidental (unintentional), initial encounter Tetrahydrocannabinol (THC) use disorder, mild, abuse Acute metabolic encephalopathy Disposition: ADMITTED INPATIENT Condition: Stable e-Prescriptions No Active Prescriptions or Reported Meds Critical Care Note Critical Care Time?: No Stability Stability form required: No Heart Score Heart Score: Heart Score Response (Comments) Value History N/A 0 EKG N/A 0 Age N/A 0 Risk Factors N/A 0 Troponin N/A 0 Total 0 I personally scribed for AUSTIN PARADA ([email or web address]) on 01/16/25 at 16:49. Electronically submitted by Jacqueline Damon ([email or web address]). AUSTIN PARADA Jan 16, 2025 16:49
[2025-01-16 17:23] LABS: Hematocrit 42.2 % (41.0-53.0); Hemoglobin 14.3 g/dL (13.5-17.5); Mean Corpuscular Hemoglobin 31.9 pg (28.0-32.0); Mean Corpuscular Volume 94.2 fL (80.0-100.0); Nucleated Red Blood Cells % 0.1 %
--- NOTE | 2025-01-16 17:24 | ECG ---
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
[2025-01-16 17:40] LABS: Alanine Aminotransferase 33 U/L (7-40); Albumin 4.6 g/dL (3.2-4.8); Alkaline Phosphatase 101 U/L (46-116); Anion Gap 10 (5-15); BUN/Creatinine Ratio 12.0 (10.0-20.0); Blood Urea Nitrogen 13 mg/dL (9-23); Calcium 10.1 mg/dL (8.7-10.4); Carbon Dioxide 25 mmol/L (20-31); Chloride 106 mmol/L (98-107); Glucose 104 mg/dL (74-106); Potassium 4.3 mmol/L (3.5-5.1); Sodium 141 mmol/L (136-145); Total Protein 7.5 g/dL (5.7-8.2)
[2025-01-16 17:41] LABS: Bilirubin, Total 1.0 mg/dL (0.2-1.0)
[2025-01-16 18:00] VITALS: PULSE 82; RESP 16; O2SAT 95
--- NOTE | 2025-01-16 18:30 | DVH ---
CT HEAD WITHOUT CONTRAST INDICATION: aloc COMPARISON: None TECHNIQUE: CT of the head without intravenous contrast. RADIATION DOSE: CTDIvol: 51.21 mGy, DLP: 821.09 mGy*cm FINDINGS: There is no evidence of acute intracranial hemorrhage, extra-axial collection, mass effect, midline shift, herniation or hydrocephalus. The ventricles, sulci and cisterns are age appropriate. The carreon-white differentiation is intact. Mild generalized cerebral volume loss with scattered hypodensities in the subcortical, deep, and periventricular white matter of both cerebral hemispheres compatible with mild chronic small vessel ischemia. The visualized paranasal sinuses and mastoid air cells are clear. The surrounding soft tissues and osseous structures are unremarkable. IMPRESSION: No evidence of acute intracranial hemorrhage, mass effect or hydrocephalus.
--- NOTE | 2025-01-16 18:44 | DVH ---
CHEST RADIOGRAPH Indication: cough Technique: Single frontal view of the chest was obtained COMPARISON: XY CHEST PORTABLE on DOS: 12/24/24 FINDINGS: Lungs and pleural spaces are clear. Cardiac silhouette and manny are within normal limits. Bones and soft tissues demonstrate no significant abnormality. IMPRESSION: No acute disease.
[2025-01-16 18:56] LABS: Urine Protein, UAD Negative (Negative)
[2025-01-16 19:00] VITALS: PULSE 82; RESP 16; O2SAT 92
[2025-01-16] MEDS: KETOROLAC TROMETH 30 MG/ML 1ML VIAL IV ONE (19:03)
[2025-01-16 19:28] LABS: Benzodiazephine Screen, Urine Pos (NEGATIVE); Cannabinoid Screen, Urine Pos (NEGATIVE); Opiate Scree,Urine Pos (NEGATIVE)
[2025-01-16 19:33] LABS: Amphetamine Screen, Urine Neg (NEGATIVE); Barbiturate Scree,Urine Neg (NEGATIVE); Cocaine Screen, Urine Neg (NEGATIVE); Phencyclidine Screen, Urine Neg (NEGATIVE)
--- NOTE | 2025-01-16 20:58 | DVHHPRES ---
History of Present Illness Resident Creating Document: FLEX MATHEWS RESIDENT History of Present Illness Mr Olu Steven, 74 year old male with past medical history of CKD stage 2, hypertension, hyperlipidemia, rotator cuff tendinopathy, diabetes mellitus, chronic pain syndrome, COPD presented to the ER with the complaints of severe lower back pain radiating to the bilateral legs. When I saw the patient, the patient was drowsy and noncooperative. The patient reports feeling hungry. However, according to the ER physician's note, the patient was A&O 4 on arrival, had generalized weakness and confusion. He denies any chest pain, shortness of breath, fever, chills, nausea, vomiting or any other complaints. According to the previous admission notes, patient's echocardiography was normal with ejection fraction 60%, colonoscopy with polypectomy done 6 months ago. Spoke to the patient's spouse who was at bedside, she reports the patient usually walks at home, but this morning the patient had such an intractable pain that he could not walk. He takes Percocet at home but he does not like Percocet. Also the patient was feeling weak and confused. Past surgical history: Denied Family history: Lung cancer, pancreatic cancer, father splenic cancer Allergies: No known allergies Social history: 25 pack years, quit 6 months ago. Patient actively drinks alcohol, last alcohol drink history was not available due to patient's condition Denied drugs abuse Home medications: Trelegy, albuterol, Percocet, gabapentin, Pepto-Bismol, tizanidine, amlodipine, atorvastatin Review of Systems Allergies: Coded Allergies: NO KNOWN ALLERGIES (Unverified , 02/17/13) Exam Vital Signs Vital Signs Date Time Temp Pulse Resp B/P (MAP) Pulse Ox O2 Delivery O2 Flow Rate FiO2 01/16/25 18:00 82 16 95 Room Air* 0 21 01/16/25 18:00 98.1 129/73 (91) 98.1 Exam Pt is lying on bed General Appearance: Alert, Oriented X3, Cooperative, Mild distress HEENT: Atraumatic, Mucous membranes moist/pink Respiratory: Clear to auscultation, Normal air movement, No added sounds Cardiovascular: Regular rate, Normal S1, Normal S2, No murmurs Abdominal/ : Active bowel sounds, Soft, no distention, no tenderness Musculoskeletal: Paraspinal tenderness present, no midline tenderness Extremities: No edema, Normal pulses, No tenderness/swelling Skin: No Significant rash, except past surgical scars Neuro: Normal speech, sensorimotor deficits none Psych/Mental Status: Mental status NL, Mood NL Nurse was there as fare register repairer during examination Labs/Xrays Labs Test 01/16/25 18:36 01/16/25 18:22 01/16/25 17:01 Range/Units Troponin I High Sensitivity < 3 L </=54 ng/L Urine Color Colorless Yellow Urine Clarity Clear Clear Urine pH 7.5 5.0-9.0 Urine Specific [place] 1.005 1.001-1.035 Urine Protein Negative Negative Urine Ketones Negative Negative Urine Blood Negative Negative /uL Urine Nitrite Negative Negative Urine Bilirubin Negative Negative Urine Urobilinogen Normal Negative mg/dL Urine Leukocyte Esterase Negative Negative /uL Urine RBC 1 0 - 3 /hpf Urine Microscopic WBC < 1 0-3 /HPF Urine Squamous Epithelial Cells None seen <5 /hpf Urine Bacteria None seen None Seen /hpf Urine Glucose Normal Normal mg/dL Urine Opiates Screen Pos NEGATIVE Urine Fentanyl Screen Neg NEGATIVE Urine Barbiturates Screen Neg NEGATIVE Urine Phencyclidine Screen Neg NEGATIVE Urine Amphetamines Screen Neg NEGATIVE Urine Benzodiazepines Screen Pos NEGATIVE Urine Cocaine Screen Neg NEGATIVE Urine Cannabinoids Screen Pos NEGATIVE White Blood Count 6.7 4.4-10.8 10^3/uL Red Blood Count 4.48 L 4.5-5.90 10^6/uL Hemoglobin 14.3 13.5-17.5 g/dL Hematocrit 42.2 41.0-53.0 % Mean Corpuscular Volume 94.2 80.0-100.0 fL Mean Corpuscular Hemoglobin 31.9 28.0-32.0 pg Mean Corpuscular Hemoglobin Concent 33.8 32.0-36.0 g/dL Red Cell Distribution Width 15.4 H 11.8-14.3 % Platelet Count 334 140-450 10^3/uL Mean Platelet Volume 7.2 6.9-10.8 fL Neutrophils (%) (Auto) 74.3 37.0-80.0 % Lymphocytes (%) (Auto) 17.8 10.0-50.0 % Monocytes (%) (Auto) 6.5 0.0-12.0 % Eosinophils (%) (Auto) 1.1 0.0-7.0 % Basophils (%) (Auto) 0.3 0.0-2.0 % Neutrophils # (Auto) 5.0 1.6-8.6 10 ^3/uL Lymphocytes # (Auto) 1.2 0.4-5.4 10 ^3/uL Monocytes # (Auto) 0.4 0-1.3 10 ^3/uL Eosinophils # (Auto) 0.1 0-0.8 10 ^3/uL Basophils # (Auto) 0 0-0.2 10 ^3/uL Nucleated Red Blood Cells 0.1 % Sodium Level 141 136-145 mmol/L Potassium Level 4.3 3.5-5.1 mmol/L Chloride Level 106 98-107 mmol/L Carbon Dioxide Level 25 20-31 mmol/L Anion Gap 10 5-15 Blood Urea Nitrogen 13 9-23 mg/dL Creatinine 1.08 0.700-1.30 mg/dL Glomerular Filtration Rate Calc 72 >90 mL/min BUN/Creatinine Ratio 12.0 10.0-20.0 Serum Glucose 104 74-106 mg/dL Lactic Acid Level 0.9 0.4-2.0 mmol/L Calcium Level 10.1 8.7-10.4 mg/dL Total Bilirubin 1.0 0.2-1.0 mg/dL Aspartate Amino Transferase (AST) 28 13-40 U/L Alanine Aminotransferase (ALT) 33 7-40 U/L Alkaline Phosphatase 101 46-116 U/L Ammonia < 10 L 11-32 umol/L Total Protein 7.5 5.7-8.2 g/dL Albumin 4.6 3.2-4.8 g/dL SEPSIS Sepsis Screen Date sepsis recognized/suspect: Jan 16, 2025 Time Sepsis recognized/suspect: 1800 Recent Procedure: No On Antibiotic Therapy: No Respiratory Rate >20: No Heart Rate >90: No Temp<36 C (96.8 F) or >38.3 C: No SBP <90 or MAP <65 mmHG: No New Acute Mental Status Change: No Is the patient on CPAP, BIPAP,: No Physician Orders Head Without Contrast (01/16/25 16:56) Chest Xray 1 View (01/16/25 16:56) Electrocardigram (01/16/25 17:22) Admit (01/16/25 20:42) Stat Ekg For Chest Pain (01/16/25 20:42) Notify Of Changes From Base (01/16/25 20:42) Oxygen By Nasal Cannula (01/16/25 20:42) Complete Blood Count (01/17/25 04:00) Comprehensive Metabolic Panel (01/17/25 04:00) Lactic Acid W/ Reflex Order (01/16/25 20:42) Vital Signs Date Time Temp Pulse Resp B/P (MAP) Pulse Ox O2 Delivery O2 Flow Rate FiO2 01/16/25 18:00 82 16 95 Room Air* 0 21 01/16/25 18:00 98.1 82 16 129/73 (91) 95 98.1 01/16/25 16:43 86 01/16/25 16:37 98.0 88 24 142/98 95 98.0 Laboratory Tests Test 01/16/25 17:01 Lactic Acid Level 0.9 mmol/L (0.4-2.0) White Blood Count 6.7 10^3/uL (4.4-10.8) Medications Medications Dose Ordered Sig/Carolynn Route Start Time Stop Time Status Last Admin Dose Admin Ketorolac Tromethamine 30 mg ONCE ONCE IV 01/16/25 19:00 01/16/25 19:01 DC 01/16/25 19:03 30 MG Assessment/Plan Assessment/Plan Acute lumbosacral radiculopathy Lumbar spine MRI on 12/24/2024: Multilevel spondylosis and facet arthropathy with associated foraminal narrowing as detailed above.No high-grade spinal canal stenosis. -injection Toradol given Gabapentin Hypertensive heart disease Chronic diastolic heart failure EF 60% Amlodipine GI prophylaxis: Pantoprazole DVT prophylaxis: Lovenox Diet: Cardiac Goals of care discussed with the patient for more than 27 minutes: Full code status Case discussed with , patient and RN Plan discussed with: Patient, Spouse, Other (RN) My Orders Orders - FLEX MATHEWS RESIDENT Procedure Category Date Status Time Admit ADMIT 01/16/25 Transmitted 20:42 Stat Ekg For Chest MIRACLE 01/16/25 In Process Pain 20:42 Notify Of Changes MIRACLE 01/16/25 In Process From Base 20:42 Oxygen By Nasal RT 01/16/25 Transmitted Cannula 20:42 Complete Blood Count LAB 01/17/25 Verified 04:00 Comprehensive LAB 01/17/25 Verified Metabolic Panel 04:00 Lactic Acid W/ Reflex LAB 01/16/25 Logged Order 20:42 Date of Service: Jan 17, 2025 Billing Provider: NEIL JOSE MD Common Visit Codes: [id number] INP/OBS CARE (HIGH) Secondary Visit Codes: [id number] CARE PLAN ADDL 30MIN FLEX MATHEWS RESIDENT Jan 16, 2025 20:58 THEE BLACKWOOD RESIDENT Jan 17, 2025 00:15
[2025-01-16 23:03] LABS: COVID19 ANTIGEN SOFIA FIA NEGATIVE (NEGATIVE)
[2025-01-17] VITALS (8 sets, daily range): BP systolic 128–147; BP diastolic 79–86; PULSE 72–88; RESP 18–20; TEMP 98–98.8; O2SAT 93–98
[2025-01-17] MEDS: KETOROLAC TROMETH 30 MG/ML 1ML VIAL IV ONE (01:05)
[2025-01-17] MEDS: LEVOTHYROXINE SODIUM 25 MCG TAB PO ONE (01:20)
[2025-01-17] MEDS: GABAPENTIN 400 MG CAP PO ONE (01:20)
[2025-01-17] MEDS: LEVOTHYROXINE SODIUM 25 MCG TAB PO SCH (06:00)
[2025-01-17 06:34] LABS: Hematocrit 40.9 % (41.0-53.0); Hemoglobin 14.1 g/dL (13.5-17.5); Mean Corpuscular Hemoglobin 32.3 pg (28.0-32.0); Mean Corpuscular Volume 93.7 fL (80.0-100.0); Nucleated Red Blood Cells % 0.2 %
[2025-01-17] MEDS: PANTOPRAZOLE 40 MG TAB PO SCH (06:40)
[2025-01-17 06:41] LABS: Alanine Aminotransferase 29 U/L (7-40); Albumin 4.3 g/dL (3.2-4.8); Alkaline Phosphatase 88 U/L (46-116); Anion Gap 12 (5-15); BUN/Creatinine Ratio 10.8 (10.0-20.0); Bilirubin, Total 1.0 mg/dL (0.2-1.0); Blood Urea Nitrogen 14 mg/dL (9-23); Calcium 9.7 mg/dL (8.7-10.4); Carbon Dioxide 26 mmol/L (20-31); Potassium 3.9 mmol/L (3.5-5.1); Total Protein 7.4 g/dL (5.7-8.2)
[2025-01-17] MEDS: KETOROLAC TROMETH 30 MG/ML 1ML VIAL IV PRN (06:41)
[2025-01-17 06:43] LABS: Chloride 107 mmol/L (98-107); Glucose 129 mg/dL (74-106); Sodium 145 mmol/L (136-145)
[2025-01-17] MEDS: GABAPENTIN 400 MG CAP PO SCH (09:50)
[2025-01-17] MEDS: ENOXAPARIN SOD 40 MG/0.4 ML SYRINGE SC SCH (09:55)
--- NOTE | 2025-01-17 13:09 | DVHPN2 ---
Reviewed: Care Plan, H&P, Labs, Medications, Previous Orders, Radiology Changes from previous H/P or p: No Changes Objective Vitals Vital Signs Date Time Temp Pulse Resp B/P (MAP) Pulse Ox O2 Delivery O2 Flow Rate FiO2 01/17/25 09:52 128/79 01/17/25 09:20 98.8 72 20 98 98.8 01/17/25 08:00 Room Air* 0 21 Medications Current Medications Medications Dose Ordered Sig/Carolynn Route Start Time Stop Time Status Last Admin Dose Admin Pantoprazole Sodium 40 mg DAILY@0600 PO 01/17/25 06:00 01/17/25 06:40 40 MG Enoxaparin Sodium 40 mg DAILY SC 01/17/25 10:00 01/17/25 09:55 40 MG Atorvastatin Calcium 40 mg HS PO 01/17/25 22:00 Amlodipine Besylate 5 mg DAILY PO 01/17/25 10:00 01/17/25 09:52 5 MG Ketorolac Tromethamine 15 mg Q6HPRN PRN IV 01/17/25 00:30 01/22/25 00:29 Gabapentin 800 mg BID PO 01/17/25 10:00 01/17/25 09:50 800 MG Levothyroxine Sodium 25 mcg QAM@0600 PO 01/17/25 06:00 Laboratory Results Laboratory Tests 01/17/25 05:32 Chemistry Test 01/16/25 17:01 01/17/25 05:32 Albumin 4.6 g/dL (3.2-4.8) 4.3 g/dL (3.2-4.8) Calcium Level 10.1 mg/dL (8.7-10.4) 9.7 mg/dL (8.7-10.4) Total Protein 7.5 g/dL (5.7-8.2) 7.4 g/dL (5.7-8.2) LFT Test 01/16/25 17:01 01/17/25 05:32 Alanine Aminotransferase (ALT) 33 U/L (7-40) 29 U/L (7-40) Alkaline Phosphatase 101 U/L (46-116) 88 U/L (46-116) Aspartate Amino Transferase (AST) 28 U/L (13-40) 32 U/L (13-40) Total Bilirubin 1.0 mg/dL (0.2-1.0) 1.0 mg/dL (0.2-1.0) HgA1c, TSH Test 01/17/25 05:32 Thyroid Stimulating Hormone (TSH) 0.73 uIU/mL (0.55-4.78) Urinalysis Test 01/16/25 18:22 Urine Color Colorless (Yellow) Urine Clarity Clear (Clear) Urine pH 7.5 (5.0-9.0) Urine Specific [place] 1.005 (1.001-1.035) Urine Protein Negative (Negative) Urine Ketones Negative (Negative) Urine Blood Negative /uL (Negative) Urine Nitrite Negative (Negative) Urine Bilirubin Negative (Negative) Urine Urobilinogen Normal mg/dL (Negative) Urine Leukocyte Esterase Negative /uL (Negative) Urine RBC 1 /hpf (0 - 3) Urine Microscopic WBC < 1 /HPF (0-3) Urine Squamous Epithelial Cells None seen /hpf (<5) Urine Bacteria None seen /hpf (None Seen) Urine Glucose Normal mg/dL (Normal) Labs and/or images reviewed: Labs reviewed by me, Image(s) reviewed by me Assessment/Plan Assessment/Plan Acute exacerbation of chronic low back pain: MRI 12/24/2024 shows spondylosis and foraminal narrowing at multiple levels: Pain medication DC Toradol start morphine Hypotension Hypercholesterolemia Diabetes COPD Acute on chronic diastolic congestive heart failure ejection fraction 60 % Plan discussed with: Patient Date of Service: Jan 17, 2025 Billing Provider: OLI OLIVA MD Common Visit Codes: 60500-[id number] INP/OBS CARE(HIGH) OLI OLIVA MD Jan 17, 2025 13:09
[2025-01-17] MEDS: MORPHINE SULFATE INJ 2 MG/ml SYRG IV PRN (15:49)
[2025-01-17] MEDS: ATORVASTATIN 20 MG TAB PO SCH (22:10)
[2025-01-18 01:00] VITALS: BP 133/76; PULSE 86; RESP 18; TEMP 98.7; O2SAT 97
[2025-01-18 05:00] VITALS: BP 146/90; PULSE 85; RESP 18; TEMP 97.7; O2SAT 96
[2025-01-18 08:00] VITALS: PULSE 85; RESP 16; O2SAT 97
[2025-01-18 08:37] VITALS: BP 144/88; PULSE 85; RESP 15; TEMP 97.5; O2SAT 97
--- NOTE | 2025-01-18 11:09 | DVHPN2 ---
Reviewed: Care Plan, H&P, Labs, Medications, Previous Orders, Radiology Changes from previous H/P or p: No Changes Objective Vitals Vital Signs Date Time Temp Pulse Resp B/P (MAP) Pulse Ox O2 Delivery O2 Flow Rate FiO2 01/18/25 10:36 85 15 144/88 01/18/25 08:37 97.5 97 97.5 01/17/25 20:00 Room Air* 0 21 Intake/Output Intake and Output 01/18/25 07:00 Intake Total 2050 ml Balance 2050 ml Intake Oral 2050 ml # Voids 7 # Bowel Movements 5 Medications Current Medications Medications Dose Ordered Sig/Carolynn Route Start Time Stop Time Status Last Admin Dose Admin Pantoprazole Sodium 40 mg DAILY@0600 PO 01/17/25 06:00 01/18/25 06:27 40 MG Enoxaparin Sodium 40 mg DAILY SC 01/17/25 10:00 01/17/25 09:55 40 MG Atorvastatin Calcium 40 mg HS PO 01/17/25 22:00 01/17/25 22:10 40 MG Amlodipine Besylate 5 mg DAILY PO 01/17/25 10:00 01/18/25 10:34 5 MG Gabapentin 800 mg BID PO 01/17/25 10:00 01/18/25 10:34 800 MG Levothyroxine Sodium 25 mcg QAM@0600 PO 01/17/25 06:00 01/18/25 06:27 25 MCG Morphine Sulfate 2 mg Q4HPRN PRN IV 01/17/25 13:15 01/18/25 10:36 2 MG Laboratory Results Laboratory Tests 01/17/25 05:32 Urinalysis Test 01/16/25 18:22 Urine Color Colorless (Yellow) Urine Clarity Clear (Clear) Urine pH 7.5 (5.0-9.0) Urine Specific [place] 1.005 (1.001-1.035) Urine Protein Negative (Negative) Urine Ketones Negative (Negative) Urine Blood Negative /uL (Negative) Urine Nitrite Negative (Negative) Urine Bilirubin Negative (Negative) Urine Urobilinogen Normal mg/dL (Negative) Urine Leukocyte Esterase Negative /uL (Negative) Urine RBC 1 /hpf (0 - 3) Urine Microscopic WBC < 1 /HPF (0-3) Urine Squamous Epithelial Cells None seen /hpf (<5) Urine Bacteria None seen /hpf (None Seen) Urine Glucose Normal mg/dL (Normal) Labs and/or images reviewed: Labs reviewed by me, Image(s) reviewed by me Assessment/Plan Assessment/Plan Acute exacerbation of chronic low back pain: MRI 12/24/2024 shows spondylosis and foraminal narrowing at multiple levels: Pain medication DC Toradol start morphine Hypertension Hypercholesterolemia Diabetes COPD Acute on chronic diastolic congestive heart failure ejection fraction 60 % Patient feels better and wants to go home; he takes Percocet 10 q.6 hours, gabapentin and tizanidine at home and he does not need any refills Plan discussed with: Patient My Orders Orders - OLI OLIVA MD Procedure Category Date Status Time Morphine Sulfate PHA 01/17/25 In Process Injection 13:15 Date of Service: Jan 18, 2025 Billing Provider: OLI OLIVA MD Common Visit Codes: [id number] INP/OBS CARE(HIGH) OLI OLIVA MD Jan 18, 2025 11:08
--- NOTE | 2025-01-18 11:12 | DVHDS2 ---
Discharge Summary Date of Admission Jan 16, 2025 at 20:42 Date of Discharge: Jan 18, 2025 Admitting Diagnosis Acute exacerbation of chronic back pain Wounds: None Labs/Diagnostic Data: Laboratory Results Test 01/17/25 05:32 01/16/25 22:15 01/16/25 21:55 01/16/25 18:36 White Blood Count 4.1 10^3/uL (4.4-10.8) Red Blood Count 4.37 10^6/uL (4.5-5.90) Hemoglobin 14.1 g/dL (13.5-17.5) Hematocrit 40.9 % (41.0-53.0) Mean Corpuscular Volume 93.7 fL (80.0-100.0) Mean Corpuscular Hemoglobin 32.3 pg (28.0-32.0) Mean Corpuscular Hemoglobin Concent 34.5 g/dL (32.0-36.0) Red Cell Distribution Width 15.3 % (11.8-14.3) Platelet Count 333 10^3/uL (140-450) Mean Platelet Volume 7.3 fL (6.9-10.8) Neutrophils (%) (Auto) 55.8 % (37.0-80.0) Lymphocytes (%) (Auto) 32.6 % (10.0-50.0) Monocytes (%) (Auto) 8.2 % (0.0-12.0) Eosinophils (%) (Auto) 3.1 % (0.0-7.0) Basophils (%) (Auto) 0.3 % (0.0-2.0) Neutrophils # (Auto) 2.3 10 ^3/uL (1.6-8.6) Lymphocytes # (Auto) 1.3 10 ^3/uL (0.4-5.4) Monocytes # (Auto) 0.3 10 ^3/uL (0-1.3) Eosinophils # (Auto) 0.1 10 ^3/uL (0-0.8) Basophils # (Auto) 0 10 ^3/uL (0-0.2) Nucleated Red Blood Cells 0.2 % Sodium Level 145 mmol/L (136-145) Potassium Level 3.9 mmol/L (3.5-5.1) Chloride Level 107 mmol/L (98-107) Carbon Dioxide Level 26 mmol/L (20-31) Anion Gap 12 (5-15) Blood Urea Nitrogen 14 mg/dL (9-23) Creatinine 1.30 mg/dL (0.700-1.30) Glomerular Filtration Rate Calc 58 mL/min (>90) BUN/Creatinine Ratio 10.8 (10.0-20.0) Serum Glucose 129 mg/dL (74-106) Calcium Level 9.7 mg/dL (8.7-10.4) Total Bilirubin 1.0 mg/dL (0.2-1.0) Aspartate Amino Transferase (AST) 32 U/L (13-40) Alanine Aminotransferase (ALT) 29 U/L (7-40) Alkaline Phosphatase 88 U/L (46-116) Total Protein 7.4 g/dL (5.7-8.2) Albumin 4.3 g/dL (3.2-4.8) Thyroid Stimulating Hormone (TSH) 0.73 uIU/mL (0.55-4.78) Influenza Type A Antigen Negative (Negative) Influenza Type B Antigen Negative (Negative) SARS-CoV-2 Antigen (Rapid) Negative (NEGATIVE) Vitamin D 25-Hydroxy 44.1 ng/mL (30.0-100) Troponin I High Sensitivity < 3 ng/L (</=54) Test 01/16/25 18:22 01/16/25 17:01 Urine Color Colorless (Yellow) Urine Clarity Clear (Clear) Urine pH 7.5 (5.0-9.0) Urine Specific [place] 1.005 (1.001-1.035) Urine Protein Negative (Negative) Urine Ketones Negative (Negative) Urine Blood Negative /uL (Negative) Urine Nitrite Negative (Negative) Urine Bilirubin Negative (Negative) Urine Urobilinogen Normal mg/dL (Negative) Urine Leukocyte Esterase Negative /uL (Negative) Urine RBC 1 /hpf (0 - 3) Urine Microscopic WBC < 1 /HPF (0-3) Urine Squamous Epithelial Cells None seen /hpf (<5) Urine Bacteria None seen /hpf (None Seen) Urine Glucose Normal mg/dL (Normal) Urine Opiates Screen Pos (NEGATIVE) Urine Fentanyl Screen Neg (NEGATIVE) Urine Barbiturates Screen Neg (NEGATIVE) Urine Phencyclidine Screen Neg (NEGATIVE) Urine Amphetamines Screen Neg (NEGATIVE) Urine Benzodiazepines Screen Pos (NEGATIVE) Urine Cocaine Screen Neg (NEGATIVE) Urine Cannabinoids Screen Pos (NEGATIVE) Lactic Acid Level 0.9 mmol/L (0.4-2.0) Ammonia < 10 umol/L (11-32) Other Laboratory Tests 01/17/25 05:32 Brief Hx & Hospital Course: 74-year-old male with a history of chronic back pain hypertension hypercholesterolemia diabetes COPD CHF admitted for exacerbation of back pain. Patient normally takes Percocet 10 q.6 hours gabapentin and tizanidine at home. Patient was started on Toradol which has not been working shifted to morphine with a which he had relief and requesting to be discharged home today discharged. No new medications patient ejection fraction 60% Consults/Reason for consult None Operations or Procedures CT head Condition at Discharge: Fair Final Diagnosis/Problems List Acute exacerbation of chronic low back pain: MRI 12/24/2024 shows spondylosis and foraminal narrowing at multiple levels: Pain medication DC Toradol start morphine Hypertension Hypercholesterolemia Diabetes COPD Acute on chronic diastolic congestive heart failure ejection fraction 60 % Discharge Disposition: Home Discharge Instruct/Medications Diet: Regular Activity: Light activity Follow Up/Referral: Resume all previous home medications Follow up with your primary Dr Dr. [place] pool Medications: None Reviewed all previous home medications No Active Prescriptions or Reported Meds 35 (Time taken for discharge summary 35 minutes) Discharge Statement: "Patient was advised to return to the ER or call 911 if any headaches, dizziness, shortness of breath, chest pain, abdominal pain, bleeding, fevers, or worsening of medical condition. Patient was counseled about treatment plan, medications, possible side effects, patientverbalized understanding. All questions were answered to the best of my ability. This discharge took greater then 30 minutes in planning, reviewing documentation, counseling the patient, and discussing with other team members." ASSESSMENT ASSESSMENT Hospital Course Improved Assessment Acute exacerbation of chronic low back pain: MRI 12/24/2024 shows spondylosis and foraminal narrowing at multiple levels: Pain medication DC Toradol start morphine Hypertension Hypercholesterolemia Diabetes COPD Acute on chronic diastolic congestive heart failure ejection fraction 60 % Date of Service: Jan 18, 2025 Billing Provider: OLI OLIVA MD Common Visit Codes: 58399-[id number] DISCH DAY >30min OLI OLIVA MD Jan 18, 2025 11:12
[2025-01-18 12:24] VITALS: BP 144/88; PULSE 85; RESP 16; TEMP 97.9; O2SAT 96
[2025-01-18 12:35] VITALS: BP 144/96; PULSE 85; RESP 16; TEMP 97.9; O2SAT 96
== END 2025-01-18 12:53 | disposition home or self-care (01) | DRG 551 ==
LOC: ER 16:24 → EDBD 16:24 → OVERFLOW 20:42 → WEST WING 01-17 05:06
PROVIDERS: ADMIT Family Medicine; ATTEND Family Medicine
DX: M47.16 Other spondylosis with myelopathy, lumbar region (principal); I50.33 Acute on chronic diastolic (congestive) heart failure; I13.0 Hypertensive heart and chronic kidney disease with heart failure and stage 1 through stage 4 chronic kidney disease, or unspecified chronic kidney disease; E11.22 Type 2 diabetes mellitus with diabetic chronic kidney disease; J44.9 Chronic obstructive pulmonary disease, unspecified; F12.10 Cannabis abuse, uncomplicated; I48.91 Unspecified atrial fibrillation; E78.00 Pure hypercholesterolemia, unspecified; N18.2 Chronic kidney disease, stage 2 (mild); G89.29 Other chronic pain; Z79.899 Other long term (current) drug therapy; Y92.89 Other specified places as the place of occurrence of the external cause; M47.26 Other spondylosis with radiculopathy, lumbar region
CPT/HCPCS: 36415; 70450; 71045; 80053; 80307; 81001; 82140; 82306; 83605; 84443; 84484; 85025; 86850; 86900; 86901; 87426; 87804; 93005; 96374; G0378; J1885